=== PATIENT | female | born 1995 | race Caucasian/White ===

== ENCOUNTER 2016-05-10 15:57 | Outpatient (CLI) | payer MEDICAID ==
[2016-05-10 16:27] LABS: APPEARANCE,URINE SLIGHTLY-CLOUDY; BILIRUBIN,URINE NEGATIVE (NEGATIVE); GLUCOSE, URINE 50 mg/dL (NEGATIVE); KETONES,URINE 80 mg/dL (NEGATIVE); LEUKOCYTE ESTERASE,URINE NEGATIVE (NEGATIVE); NITRITE,URINE NEGATIVE (NEGATIVE); PROTEIN,URINE NEGATIVE (NEGATIVE); URINE SPECIFIC GRAVITY 1.017; UROBILINOGEN,URINE NEGATIVE mg/dL (<2.0)
[2016-05-10 16:47] LABS: URINE BARBITURATES SCREEN NEGATIVE; URINE METHADONE SCREEN NEGATIVE; URINE OPIATES LOW NEGATIVE; URINE PHENCYCLIDINE SCREEN NEGATIVE
== END 2016-05-10 17:01 | disposition home or self-care (01) ==
LOC: LC 15:57
PROVIDERS: ATTEND Obstetrics & Gynecology
DX: Z34.93 Encounter for supervision of normal pregnancy, unspecified, third trimester (principal); Z3A.34 34 weeks gestation of pregnancy
CPT/HCPCS: 59025; 80307; 81001

== ENCOUNTER 2016-05-16 15:55 | Outpatient (CLI) | payer MEDICAID ==
[2016-05-16 17:16] LABS: APPEARANCE,URINE SLIGHTLY-CLOUDY; BILIRUBIN,URINE NEGATIVE (NEGATIVE); GLUCOSE, URINE NEGATIVE (NEGATIVE); KETONES,URINE NEGATIVE (NEGATIVE); LEUKOCYTE ESTERASE,URINE TRACE (NEGATIVE); NITRITE,URINE NEGATIVE (NEGATIVE); PROTEIN,URINE NEGATIVE (NEGATIVE); URINE SPECIFIC GRAVITY 1.005; UROBILINOGEN,URINE NEGATIVE mg/dL (<2.0)
[2016-05-16 17:32] LABS: URINE BARBITURATES SCREEN NEGATIVE; URINE METHADONE SCREEN NEGATIVE; URINE OPIATES LOW NEGATIVE; URINE PHENCYCLIDINE SCREEN NEGATIVE
--- NOTE | 2016-05-16 17:42 | Non Stress Test Report ---
Non Stress Test Datetime Report Generated by CPN: 05/16/2016 17:42 DEMOGRAPHIC EGA NST: 35.5 EGA NST: 34.6 INDICATION Indication for Study: Ordered by Provider Indication for Study: Other Indication for Study (NST) Other: LC Indication for Study (NST) Other: LC MONITORING Monitor Explained: Monitor Explained; Patient Verbalized Understanding Monitor Explained: Monitor Explained; Test Explained; Patient Verbalized Understanding Time on Monitor: 05/16/2016 16:21 Time on Monitor: 05/10/2016 16:13 Time off Monitor: 05/16/2016 17:26 Time off Monitor: 05/10/2016 16:54 NST Duration: 65 NST Duration: 41 NST INTERVENTIONS NST Interventions: PO Hydration; Reposition Patient NST Interventions: PO Hydration Physician Notified NST: AUrsula Corbettel CNM Physician Notified NST: Baron Centeno CNM BABY A: [id number] BABY A Movement : Present Movement : Present Contraction Frequency : irregular Contraction Frequency : none FHR Baseline : 135 FHR Baseline : 135 Accelerations : 15X15 Accelerations : 15X15 Decelerations : None Decelerations : None Variability : Moderate 6-25bpm Variability : Moderate 6-25bpm NST Review: Meets Criteria for Reactive NST NST Review: Meets Criteria for Reactive NST NST Review and Verified By : Mirta Allen RN NST Review and Verified By : Dolores Nascimento RNC NST Results: Reactive NST Results: Reactive NST REPORT Report Trigger: Send Report
== END 2016-05-16 17:33 | disposition home or self-care (01) ==
LOC: LC 15:55
PROVIDERS: ATTEND Student in an Organized Health Care Education/Training Program
PROC: 4A1HXCZ Monitoring of Products of Conception, Cardiac Rate, External Approach (ICD-10-PCS; principal; 2016-05-16)
DX: O47.03 False labor before 37 completed weeks of gestation, third trimester (principal); Z3A.35 35 weeks gestation of pregnancy
CPT/HCPCS: 59025; 80307; 81001

== ENCOUNTER 2016-06-12 18:12 | Outpatient (CLI) | payer MEDICAID ==
[2016-06-12 19:32] LABS: APPEARANCE,URINE SLIGHTLY-CLOUDY; BILIRUBIN,URINE NEGATIVE (NEGATIVE); GLUCOSE, URINE NEGATIVE (NEGATIVE); KETONES,URINE NEGATIVE (NEGATIVE); LEUKOCYTE ESTERASE,URINE MODERATE (NEGATIVE); NITRITE,URINE NEGATIVE (NEGATIVE); PROTEIN,URINE NEGATIVE (NEGATIVE); URINE SPECIFIC GRAVITY 1.004; UROBILINOGEN,URINE NEGATIVE mg/dL (<2.0)
[2016-06-12] MEDS ORDERED: DOCUSATE SODIUM 100 MG CAPSULE PO ONE (19:40)
[2016-06-12 19:48] LABS: URINE BARBITURATES SCREEN NEGATIVE; URINE METHADONE SCREEN NEGATIVE; URINE OPIATES LOW NEGATIVE; URINE PHENCYCLIDINE SCREEN NEGATIVE
[2016-06-12] MEDS ORDERED: DOCUSATE SODIUM 100 MG CAPSULE ONE (19:58)
--- NOTE | 2016-06-12 20:01 | L&D Flow Sheet ---
LD Flowsheet Datetime Report Generated by CPN: 06/12/2016 20:00 Datetime: 06/12/2016 19:49 Communication Communication Comments: Dr. Neely notified of urine result, patient complaints, sve, and no bm for two days. Orders to discharge home in stable condition. May provide colace if patient prefers. (Suzette Kossmann, RN) Datetime: 06/12/2016 19:40 Vital Signs NBP Sys/Monserrat/Mean (mmHg): 117 (QS system process) : 67 (QS system process) : 87 (QS system process) Pulse: 93 (QS system process) LaborFlag: Antepartum (QS system process) Datetime: 06/12/2016 19:24 Vaginal Exam Station: -3 (Suzette Tran, RN) Exam by: RN Marc (Suzette Tran, RN) Cervix, Position: Posterior (Suzette Vivaskatherine, RN) Vaginal Exam Comments: closed/thick, no bleeding noted on glove, white discharge present (Suzette Tran, RN) Datetime: 06/12/2016 19:18 Patient Care I/O Interventions: Up to BR (Suzette Tran, RN) Datetime: 06/12/2016 19:14 Monitor Interventions for UA: [place] Adjusted (Suzette Kossmann, RN) Datetime: 06/12/2016 19:13 Communication Communication Comments: Report to J. Kossman, RN. Care relinquished (Macrina Reymundo, RN) Datetime: 06/12/2016 19:10 Maternal Assessment Level of Consciousness: Fully Conscious (Suzette Tran RN) DTR's/Clonus: DTRs 2+; No Clonus (Suzette Tran RN) Headache: Generalized (Suzette Tran RN) Breath Sounds, Left: Clear and Equal (Suzette Tran RN) Breath Sounds, Right: Clear and Equal (Suzette Tran RN) Nausea/Vomiting: Hx of Nausea/Vomiting (Annotations: intermittent nausea for weeks ) (Suzette Tran RN) RUQ Epigastric Pain: Denies (Suzette Tran RN) Datetime: 06/12/2016:06 Vital Signs NBP Sys/Monserrat/Mean (mmHg): 109 (QS system process) : 61 (QS system process) : 78 (QS system process) Pulse: 91 (QS system process) LaborFlag: Antepartum (QS system process) Datetime: 06/12/2016 19:04 Comments: RN at bedside adjusting TOCO (Macrina Reymundo, RN) Datetime: 06/12/2016 19:00 Uterine Activity Monitor Mode: External; Palpation (Macrina Reymundo, RN) Quality: Mild (Macrina Reymundo, RN) Duration (sec): 120 (Macrina Reymundo, RN) Resting Tone (Palpate): Relaxed (Macrina Reymundo, RN) Contraction Comments: patient reporting no contractions at this time (Macrina Reymundo, RN) Contraction Comments: ctx x 1 (Macrina Reymundo, RN) Assessment A Monitor Mode: External US (Macrina Reymundo, RN) FHR Baseline Rate : 130 (Macrina Reymundo, RN) Variability: Moderate 6-25 bpm (Macrina Reymundo, RN) Accelerations: 15X15 (Macrina Reymundo, RN) Decelerations: None (Macrina Reymundo, RN) Patient Care I/O Interventions: Popsicle (Macrina Reymundo, RN) Datetime: 06/12/2016 18:36 Vital Signs NBP Sys/Monserrat/Mean (mmHg): 101 (QS system process) : 57 (QS system process) : 73 (QS system process) Pulse: 97 (QS system process) Pain Pain Scale: 2 (Macrina Reymundo, RN) Pain Presence: Constant (Macrina Reymundo, RN) Pain Type: Dull (Macrina Reymundo, RN) Pain Location: Abdomen (Macrina Reymundo, RN) Pain Goal: 1 (Macrina Reymundo, RN) Vaginal Bleeding: Normal Show (Macrina Reymundo, RN) Maternal Assessment Level of Consciousness: Fully Conscious (Macrina Reymundo, RN) DTR's/Clonus: DTRs 1+; No Clonus (Macrina Reymundo, RN) Headache: Generalized (Macrina Reymundo, RN) Breath Sounds, Left: Clear and Equal (Macrina Reymundo, RN) Breath Sounds, Right: Clear and Equal (Macrina Reymundo, RN) Nausea/Vomiting: Present (Annotations: nausea) (Macrina Reymundo, RN) RUQ Epigastric Pain: Denies (Macrina Reymundo, RN) LaborFlag: Antepartum (QS system process) Datetime: 05/16/2016 16:35 LaborFlag: Antepartum (QS system process) Datetime: 05/16/2016 16:34 Temperature (C): 36.8 (QS system process) LaborFlag: Antepartum (QS system process) Datetime: 05/16/2016 16:30 LaborFlag: Antepartum (QS system process) Datetime: 05/10/2016 16:54 LaborFlag: Antepartum (QS system process) Datetime: 05/10/2016 16:20 LaborFlag: Antepartum (QS system process) Datetime: 05/10/2016 16:14 LaborFlag: Antepartum (QS system process)
--- NOTE | 2016-06-16 21:18 | Non Stress Test Report ---
Non Stress Test Datetime Report Generated by CPN: 06/16/2016 21:18 DEMOGRAPHIC Test Number: 3 EGA NST: 39.4 INDICATION Indication for Study: Ordered by Provider Indication for Study (NST) Other: Labor Check VITAL SIGNS Temperature - NST: 97.6 Pulse - NST: 93 RESP - NST: 16 NBPSYS NST: 117 NBPDIA NST: 67 URINE RESULTS Urine Protein, NST: Negative Urine Ketones - NST: Negative Urine Glucose - NST: Negative Urine Blood - NST: Negative MONITORING Monitor Explained: Monitor Explained; Test Explained; Patient Verbalized Understanding Time on Monitor: 06/12/2016 18:34 Time off Monitor: 06/12/2016 19:50 NST Duration: 76 NST INTERVENTIONS NST Interventions: PO Hydration; Reposition Patient Physician Notified NST: Dr. Neely BABY A: [id number] BABY A Movement : Present Contraction Frequency : irregular FHR Baseline : 130 Accelerations : 15X15 Decelerations : None Variability : Moderate 6-25bpm NST Review: Meets Criteria for Reactive NST NST Review and Verified By : KEELY COSME Results: Reactive NST REPORT Report Trigger: Send Report
== END 2016-06-12 20:03 | disposition home or self-care (01) ==
LOC: LC 18:12
PROVIDERS: ATTEND Obstetrics & Gynecology
PROC: 4A1HXCZ Monitoring of Products of Conception, Cardiac Rate, External Approach (ICD-10-PCS; principal; 2016-06-12)
DX: O47.1 False labor at or after 37 completed weeks of gestation (principal); O26.893 Other specified pregnancy related conditions, third trimester; R11.2 Nausea with vomiting, unspecified; Z3A.39 39 weeks gestation of pregnancy
CPT/HCPCS: 59025; 81005; 80307; J3490

== ENCOUNTER 2016-06-16 21:17 | Outpatient (CLI) | payer MEDICAID ==
[2016-06-16 21:52] LABS: APPEARANCE,URINE CLEAR; BILIRUBIN,URINE NEGATIVE (NEGATIVE); GLUCOSE, URINE NEGATIVE (NEGATIVE); KETONES,URINE NEGATIVE (NEGATIVE); LEUKOCYTE ESTERASE,URINE TRACE (NEGATIVE); NITRITE,URINE NEGATIVE (NEGATIVE); PROTEIN,URINE NEGATIVE (NEGATIVE); URINE SPECIFIC GRAVITY 1.004; UROBILINOGEN,URINE NEGATIVE mg/dL (<2.0)
[2016-06-16 22:05] LABS: URINE BARBITURATES SCREEN NEGATIVE; URINE METHADONE SCREEN NEGATIVE; URINE OPIATES LOW NEGATIVE; URINE PHENCYCLIDINE SCREEN NEGATIVE
[2016-06-16] MEDS ORDERED: CITRIC ACID/SODIUM CITRATE ORAL SOLN 15 ML UDCUP ONE (22:39)
[2016-06-16] MEDS ORDERED: CITRIC ACID/SODIUM CITRATE ORAL SOLN 15 ML UDCUP PO ONE (22:45)
== END 2016-06-16 23:28 | disposition home or self-care (01) ==
LOC: LC 21:17
PROVIDERS: ATTEND Student in an Organized Health Care Education/Training Program
PROC: 4A1HXCZ Monitoring of Products of Conception, Cardiac Rate, External Approach (ICD-10-PCS; principal; 2016-06-16)
DX: O47.1 False labor at or after 37 completed weeks of gestation (principal); Z3A.40 40 weeks gestation of pregnancy
CPT/HCPCS: 59025; 81005; 80307; J3490

== ENCOUNTER 2016-06-17 13:55 | Inpatient (IN) | payer MEDICAID ==
--- NOTE | 2016-06-17 14:03 | Non Stress Test Report ---
Non Stress Test Datetime Report Generated by CPN: 06/17/2016 14:03 DEMOGRAPHIC EGA NST: 40.1 INDICATION Indication for Study: Ordered by Provider Indication for Study (NST) Other: LC MONITORING Monitor Explained: Monitor Explained; Test Explained; Patient Verbalized Understanding Time on Monitor: 06/16/2016 21:39 Time off Monitor: 06/16/2016 22:24 NST Duration: 45 NST INTERVENTIONS NST Interventions: PO Hydration; Reposition Patient Physician Notified NST: Dr. Sean BABY A Movement : Present Contraction Frequency : 7.5-9 FHR Baseline : 135 Accelerations : 15X15 Decelerations : None Variability : Moderate 6-25bpm NST Review: Meets Criteria for Reactive NST NST Review and Verified By : FADIA Bedolla NST Results: Reactive NST REPORT Report Trigger: Send Report
[2016-06-17] MEDS ORDERED: RINGERS SOLUTION,LACTATED 300 ML IV ONE (14:08)
[2016-06-17] MEDS ORDERED: RINGERS SOLUTION,LACTATED 1,000 ML IV PRN ×2 (14:08→14:15)
[2016-06-17 14:30] LABS: APPEARANCE,URINE SLIGHTLY-CLOUDY; BILIRUBIN,URINE NEGATIVE (NEGATIVE); GLUCOSE, URINE NEGATIVE (NEGATIVE); KETONES,URINE NEGATIVE (NEGATIVE); LEUKOCYTE ESTERASE,URINE NEGATIVE (NEGATIVE); NITRITE,URINE NEGATIVE (NEGATIVE); PROTEIN,URINE NEGATIVE (NEGATIVE); URINE SPECIFIC GRAVITY 1.015
[2016-06-17 14:43] LABS: ABSOLUTE EOSINOPHILS # (AUTO) 0.1 10^3/uL (0.0-0.6); ABSOLUTE LYMPHOCYTES (AUTO) 1.5 10^3/uL (0.5-4.7); ABSOLUTE MONOCYTES (AUTO) 0.7 10^3/uL (0.1-1.4); ABSOLUTE NEUT (AUTO) 8.1 10^3/uL (1.7-8.2); BASOPHILS % (AUTO) 0.4 % (0-2); EOSINOPHILS % (AUTO) 0.8 % (0-6); HEMATOCRIT 31.2 % (36.0-47.0); HEMOGLOBIN 10.2 g/dL (12.0-15.5); HGB HCT DIFFERENCE -0.6; LYMPHOCYTES % (AUTO) 14.4 % (13-45); MEAN CORPUSCULAR HEMOGLOBIN 26.1 pg (27.0-33.4); MEAN CORPUSCULAR HGB CONC 32.5 g/dL (32.0-36.0); MEAN CORPUSCULAR VOLUME 80 fl (80-97); MONOCYTES % (AUTO) 6.9 % (3-13); RED BLOOD COUNT 3.89 10^6/uL (3.72-5.28); RED CELL DISTRIBUTION WIDTH 14.9 % (11.5-14.0); SEGMENTED NEUTROPHILS % (AUTO) 77.5 % (42-78); WHITE BLOOD COUNT 10.5 10^3/uL (4.0-10.5)
[2016-06-17] MEDS ORDERED: OXYTOCIN/NORMAL SALINE 20 UNIT/1,000 ML RTUINJ ONE ×2 (14:47→23:16)
[2016-06-17 14:49] LABS: URINE BARBITURATES SCREEN NEGATIVE; URINE METHADONE SCREEN NEGATIVE; URINE OPIATES LOW NEGATIVE; URINE PHENCYCLIDINE SCREEN NEGATIVE
[2016-06-17] MEDS ORDERED: NALBUPHINE HCL INJ 10 MG/1 ML AMPULE IV ONE (17:36)
[2016-06-17] MEDS: OXYTOCIN/NORMAL SALINE 1,000 ML IV PRN (17:37)
[2016-06-17] MEDS ORDERED: NALBUPHINE HCL INJ 10 MG/1 ML AMPULE ONE (17:37)
--- NOTE | 2016-06-17 20:01 | L&D Flow Sheet ---
LD Flowsheet Datetime Report Generated by CPN: 06/17/2016 20:00 Datetime: 06/17/2016 19:54 Pain Assessment Comments: Pt remains on birthing ball, breathing through contractions; bolus started for epidural. (Maryellen Narayan RN) IV/Blood Work: IV Bolus Started (Maryellen Narayan RN) Procedure Verify: Correct Patient Identity; Correct Side and Site are Marked; Accurate Procedure Consent Form; Agreement on Procedure to be Done; Relevant Images and Results are Properly Labeled and Displayed; Addressed Need to Administer Antibiotics or Fluids for Irrigation; Safety Precautions Based on Patient History or Medication Use (Maryellen Narayan RN) Anesthesia Plans: Epidural (Maryellen Narayan RN) Instructional Method: Verbal; Patient Instructed; Verbalized Understanding (Maryellen Narayan RN) Plan of Care: Plan of Care Discussed (Maryellen Naryaan RN) Communication Comments: Dr. Mathews on unit, reviewed strip. Orders received, pt may receive epidural. (Maryellen Narayan RN) LaborFlag: Antepartum (QS system process) Datetime: 06/17/2016 19:49 Instructional Method: Verbal; Patient Instructed; Verbalized Understanding (Maryellen Vitrano, RN) Plan of Care: Plan of Care Discussed (Maryellen Vitrano, RN) Datetime: 06/17/2016 19:48 Communication Comments: Dr. Mathews called, reviewed pt condition, toco tracing, FHTs, pt request for medication. Dr. Mathews states she will come to unit to assess pt. (Maryellen Vitrano, RN) Datetime: 06/17/2016 19:47 Monitor Interventions for FHR: Ultrasound Adjusted (Maryellen Vitrano, RN) Datetime: 06/17/2016 19:45 Monitor Mode: External; Palpation (Maryellen Vitrano, RN) Frequency (min): 2-4 (Maryellen Vitrano, RN) Quality: Moderate (Maryellen Vitrano, RN) Duration (sec): 50-70 (Maryellen Vitrano, RN) Duration Criteria: Less than Two 120 Second Contractions (Maryellen Vitrano, RN) Pattern: Normal: <= 5 Contractions in 10 Minutes (Maryellen Vitrano, RN) Resting Tone (Palpate): Relaxed (Maryellen Vitrano, RN) Monitor Mode: External US (Maryellen Vitrano, RN) FHR Baseline Rate : 135 (Maryellen Vitrano, RN) Variability: Moderate 6-25 bpm (Maryellen Vitrano, RN) Accelerations: 10X10 (Maryellen Vitrano, RN) Decelerations: None (Maryellen Vitrano, RN) Pain Coping: Requesting Pain Medication or Epidural (Maryellen Vitrano, RN) Pitocin (milliunit): Pitocin Remains (milliunits) @ 20 (Maryellen Vitrano, RN) Datetime: 06/17/2016 19:42 NBP Sys/Monserrat/Mean (mmHg): 115 (QS system process) : 69 (QS system process) : 85 (QS system process) Pulse: 87 (QS system process) Respirations: 17 (Maryellen Vitrano, RN) LaborFlag: Antepartum (QS system process) Datetime: 06/17/2016 19:30 Monitor Mode: External; Palpation (Maryellen Vitrano, RN) Frequency (min): 2-4 (Maryellen Vitrano, RN) Quality: Moderate (Maryellen Vitrano, RN) Duration (sec): 50-70 (Maryellen Vitrano, RN) Duration Criteria: Less than Two 120 Second Contractions (Maryellen Vitrano, RN) Pattern: Normal: <= 5 Contractions in 10 Minutes (Maryellen Vitrano, RN) Resting Tone (Palpate): Relaxed (Maryellen Vitrano, RN) Monitor Mode: External US (Maryellen Vitrano, RN) FHR Baseline Rate : 135 (Maryellen Vitrano, RN) Variability: Moderate 6-25 bpm (Maryellen Vitrano, RN) Accelerations: 10X10 (Maryellen Vitrano, RN) Decelerations: None (Maryellen Vitrano, RN) Pitocin (milliunit): Pitocin Remains (milliunits) @ 20 (Maryellen Vitrano, RN) Datetime: 06/17/2016 19:27 Monitor Interventions for UA: [place] Adjusted (Maryellen Vitrano, RN) Datetime: 06/17/2016 19:15 Monitor Mode: External (Maryellen Vitrano, RN) Frequency (min): 2-3 (Maryellen Vitrano, RN) Quality: Mild/Moderate (Maryellen Vitrano, RN) Duration (sec): 50-70 (Maryellen Vitrano, RN) Duration Criteria: Less than Two 120 Second Contractions (Maryellen Vitrano, RN) Pattern: Normal: <= 5 Contractions in 10 Minutes (Maryellen Vitrano, RN) Resting Tone (Palpate): Relaxed (Maryellen Vitrano, RN) Monitor Mode: External US (Maryellen Vitrano, RN) FHR Baseline Rate : 135 (Maryellen Vitrano, RN) Variability: Moderate 6-25 bpm (Maryellen Vitrano, RN) Accelerations: None (Maryellen Vitrano, RN) Decelerations: None (Maryellen Vitrano, RN) Pitocin (milliunit): Pitocin Remains (milliunits) @ 20 (Mayrellen Vitrano, RN) Datetime: 06/17/2016 19:11 NBP Sys/Monserrat/Mean (mmHg): 118 (QS system process) : 68 (QS system process) : 87 (QS system process) Pulse: 82 (QS system process) Respirations: 16 (Maryellen Narayan RN) LaborFlag: Antepartum (QS system process) Datetime: 06/17/2016 19:10 Pain Assessment Comments: Denies needs (Maryellen Narayan RN) Comfort Measures: Breathing/Relaxation (Maryellen Narayan RN) Patient Care Comments: Pt up to birthing ball (Maryellen Narayan RN) LaborFlag: Antepartum (QS system process) Datetime: 06/17/2016 19:05 Pitocin (milliunit): Pitocin Increased to (milliunits) @ 20 (Maryellen Vitrano, RN) I/O Interventions: Up to BR (Maryellen Vitrano, RN) Datetime: 06/17/2016 19:00 Monitor Mode: External; Palpation (Maryellen Vitrano, RN) Frequency (min): 1.5-3 (Maryellen Vitrano, RN) Quality: Mild/Moderate (Maryellen Vitrano, RN) Duration (sec): 50-90 (Maryellen Vitrano, RN) Duration Criteria: Less than Two 120 Second Contractions (Maryellen Vitrano, RN) Pattern: Normal: <= 5 Contractions in 10 Minutes (Maryellen Vitrano, RN) Resting Tone (Palpate): Relaxed (Maryellen Vitrano, RN) Monitor Mode: External US (Maryellen Vitrano, RN) FHR Baseline Rate : 135 (Maryellen Vitrano, RN) Variability: Moderate 6-25 bpm (Maryellen Vitrano, RN) Accelerations: 15X15 (Maryellen Vitrano, RN) Decelerations: None (Maryellen Vitrano, RN) Pitocin (milliunit): Pitocin Remains (milliunits) @ 18 (Maryellen Vitrano, RN) Datetime: 06/17/2016 18:45 Monitor Mode: External (Maryellen Vitrano, RN) Frequency (min): 1-2 (Maryellen Vitrano, RN) Quality: Mild/Moderate (Maryellen Vitrano, RN) Duration (sec): 50-60 (Maryellen Vitrano, RN) Duration Criteria: Less than Two 120 Second Contractions (Maryellen Vitrano, RN) Pattern: Normal: <= 5 Contractions in 10 Minutes (Maryellen Vitrano, RN) Resting Tone (Palpate): Relaxed (Maryellen Vitrano, RN) Monitor Mode: External US (Maryellen Vitrano, RN) FHR Baseline Rate : 135 (Maryellen Vitrano, RN) Variability: Moderate 6-25 bpm (Maryellen Vitrano, RN) Accelerations: 10X10 (Maryellen Vitrano, RN) Decelerations: None (Maryellen Vitrano, RN) Pitocin (milliunit): Pitocin Remains (milliunits) @ 18 (Maryellen Vitrano, RN) Datetime: 06/17/2016 18:42 NBP Sys/Monserrat/Mean (mmHg): 117 (QS system process) : 73 (QS system process) : 90 (QS system process) Pulse: 93 (QS system process) Respirations: 16 (Maryellen Vitrano, RN) LaborFlag: Antepartum (QS system process) Datetime: 06/17/2016 18:30 Monitor Mode: External (Maryellen Vitrano, RN) Frequency (min): 2-2.5 (Maryellen Vitrano, RN) Quality: Mild/Moderate (Maryellen Vitrano, RN) Duration (sec): 50-70 (Maryellen Vitrano, RN) Duration Criteria: Less than Two 120 Second Contractions (Maryellen Vitrano, RN) Pattern: Normal: <= 5 Contractions in 10 Minutes (Maryellen Vitrano, RN) Resting Tone (Palpate): Relaxed (Maryellen Vitrano, RN) Monitor Mode: External US (Maryellen Vitrano, RN) FHR Baseline Rate : 140 (Maryellen Vitrano, RN) Variability: Moderate 6-25 bpm (Maryellen Vitrano, RN) Accelerations: 10X10 (Maryellen Vitrano, RN) Decelerations: None (Maryellen Vitrano, RN) Pitocin (milliunit): Pitocin Increased to (milliunits) @ 18 (Maryellen Vitrano, RN) Datetime: 06/17/2016 18:15 Monitor Mode: External (Maryellen Vitrano, RN) Frequency (min): 2-3 (Maryellen Vitrano, RN) Quality: Mild/Moderate (Maryellen Vitrano, RN) Duration (sec): 50-80 (Maryellen Vitrano, RN) Duration Criteria: Less than Two 120 Second Contractions (Maryellen Vitrano, RN) Pattern: Normal: <= 5 Contractions in 10 Minutes (Maryellen Vitrano, RN) Resting Tone (Palpate): Relaxed (Maryellen Vitrano, RN) Monitor Mode: External US (Maryellen Vitrano, RN) FHR Baseline Rate : 140 (Maryellen Vitrano, RN) Variability: Moderate 6-25 bpm (Maryellen Vitrano, RN) Accelerations: None (Maryellen Vitrano, RN) Decelerations: None (Maryellen Vitrano, RN) Pitocin (milliunit): Pitocin Remains (milliunits) @ 16 (Maryellen Vitrano, RN) Datetime: 06/17/2016 18:12 NBP Sys/Monserrat/Mean (mmHg): 121 (QS system process) : 82 (QS system process) : 97 (QS system process) Pulse: 100 (QS system process) Respirations: 16 (Maryellen Vitrano, RN) Temperature (F): 97.4 (Maryellen Vitrano, RN) Temperature (C): 36.3 (QS system process) Temperature Route: Oral (Maryellen Vitrano, RN) LaborFlag: Antepartum (QS system process) Datetime: 06/17/2016 18:10 Pitocin (milliunit): Pitocin Increased to (milliunits) @ 16 (Maryellen Vitrano, RN) Datetime: 06/17/2016 18:00 Monitor Mode: External; Palpation (Maryellen Vitrano, RN) Frequency (min): 2-4 (Maryellen Vitrano, RN) Quality: Mild/Moderate (Maryellen Vitrano, RN) Duration (sec): 50-80 (Maryellen Vitrano, RN) Duration Criteria: Less than Two 120 Second Contractions (Maryellen Vitrano, RN) Pattern: Normal: <= 5 Contractions in 10 Minutes (Maryellen Vitrano, RN) Resting Tone (Palpate): Relaxed (Maryellen Vitrano, RN) Monitor Mode: External US (Maryellen Vitrano, RN) FHR Baseline Rate : 140 (Maryellen Vitrano, RN) Variability: Minimal - Undetectable to <=5 bpm (Maryellen Vitrano, RN) Accelerations: None (Maryellen Vitrano, RN) Decelerations: None (Maryellen Vitrano, RN) Pain Assessment Comments: Pt states pain is relieved; resting in bed (Maryellen Vitrano, RN) Pitocin (milliunit): Pitocin Remains (milliunits) @ 14 (Maryellen Vitrano, RN) I/O Interventions: Clear Liquids Given (Maryellen Vitrano, RN) LaborFlag: Antepartum (QS system process) Datetime: 06/17/2016 17:45 Monitor Mode: External (Maryellen Vitrano, RN) Frequency (min): 2-3.5 (Maryellen Vitrano, RN) Quality: Mild/Moderate (Maryellen Vitrano, RN) Duration (sec): 50-100 (Maryellen Vitrano, RN) Duration Criteria: Less than Two 120 Second Contractions (Maryellen Vitrano, RN) Pattern: Normal: <= 5 Contractions in 10 Minutes (Maryellen Vitrano, RN) Resting Tone (Palpate): Relaxed (Maryellen Vitrano, RN) Monitor Mode: External US (Maryellen Vitrano, RN) FHR Baseline Rate : 140 (Maryellen Vitrano, RN) Variability: Moderate 6-25 bpm (Maryellen Vitrano, RN) Accelerations: None (Maryellen Vitrano, RN) Decelerations: None (Maryellen Vitrano, RN) Pitocin (milliunit): Pitocin Remains (milliunits) @ 14 (Maryellen Vitrano, RN) Datetime: 06/17/2016 17:42 NBP Sys/Monserrat/Mean (mmHg): 118 (QS system process) : 57 (QS system process) : 82 (QS system process) Pulse: 91 (QS system process) Respirations: 16 (Maryellen Vitrano, RN) LaborFlag: Antepartum (QS system process) Datetime: 06/17/2016 17:39 Monitor Interventions for FHR: Ultrasound Adjusted (Maryellen Vitrano, RN) Patient Position/Activity: Right Lateral (Maryellen Vitrano, RN) Datetime: 06/17/2016 17:37 Medication Comments: Nubain 10 mg IV (Maryellen Vitrano, RN) Datetime: 06/17/2016 17:34 Communication Comments: Call to Dr. Mathews, reviewed SVE and pt request for pain medication.Orders from Dr. Mathews for Nubain 10 mg IV x1 now for pain. (Maryellen Helene, RN) Datetime: 06/17/2016 17:33 Dilatation (cm): 2.0 (Maryellen Narayan, RN) Effacement (%): 60 (Maryellen Helene, RN) Station: -2 (Maryellen Helene RN) Exam by: Robin Narayan RN (Maryellen Narayan, RN) Vaginal Bleeding: None (Maryellengigi Narayan, RN) Cervix, Consistency: Moderate (Maryellen Helene, RN) Cervix, Position: Posterior (Maryellen Pasqualeano, RN) Datetime: 06/17/2016 17:32 Pain Coping: Requesting Pain Medication or Epidural (Maryellen Vitrano, RN) Datetime: 06/17/2016 17:30 Monitor Mode: External (Maryellen Vitrano, RN) Frequency (min): 2-3 (Maryellen Vitrano, RN) Quality: Mild/Moderate (Maryellen Vitrano, RN) Duration (sec): 50-70 (Maryellen Vitrano, RN) Duration Criteria: Less than Two 120 Second Contractions (Maryellen Vitrano, RN) Pattern: Normal: <= 5 Contractions in 10 Minutes (Maryellen Vitrano, RN) Resting Tone (Palpate): Relaxed (Maryellen Vitrano, RN) Monitor Mode: External US (Maryellen Vitrano, RN) FHR Baseline Rate : 145 (Maryellen Vitrano, RN) Variability: Moderate 6-25 bpm (Maryellen Vitrano, RN) Accelerations: 15X15 (Maryellen Vitrano, RN) Decelerations: None (Maryellen Vitrano, RN) Pitocin (milliunit): Pitocin Remains (milliunits) @ 14 (Maryellen Vitrano, RN) Datetime: 06/17/2016 17:29 Monitor Interventions for UA: [place] Adjusted (Maryellen Vitrano, RN) Datetime: 06/17/2016 17:18 Patient Position/Activity: Left Tilt (Maryellen Vitrano, RN) Datetime: 06/17/2016 17:15 Monitor Mode: External (Maryellen Vitrano, RN) Frequency (min): 2-3 (Maryellen Vitrano, RN) Quality: Mild/Moderate (Maryellen Vitrano, RN) Duration (sec): 50-90 (Maryellen Vitrano, RN) Duration Criteria: Less than Two 120 Second Contractions (Maryellen Vitrano, RN) Pattern: Normal: <= 5 Contractions in 10 Minutes (Maryellen Vitrano, RN) Resting Tone (Palpate): Relaxed (Maryellen Vitrano, RN) Monitor Mode: External US (Maryellen Vitrano, RN) FHR Baseline Rate : 145 (Maryellen Vitrano, RN) Variability: Moderate 6-25 bpm (Maryellen Vitrano, RN) Accelerations: 15X15 (Maryellen Vitrano, RN) Decelerations: None (Maryellen Vitrano, RN) Pitocin (milliunit): Pitocin Remains (milliunits) @ 14 (Maryellen Vitrano, RN) Datetime: 06/17/2016 17:11 NBP Sys/Monserrat/Mean (mmHg): 110 (QS system process) : 62 (QS system process) : 79 (QS system process) Pulse: 99 (QS system process) Respirations: 17 (Maryellen Vitrano, RN) LaborFlag: Antepartum (QS system process) Datetime: 06/17/2016 17:05 Comfort Measures: Breathing/Relaxation; Rocking Chair; Family Support (Maryellen Narayan RN) Patient Care Comments: Pt up to rocking chair; denies needs (Maryellen Narayan RN) Datetime: 06/17/2016 17:01 Hygiene: Underpad Changed (Maryellen Vitrano, RN) Datetime: 06/17/2016 17:00 Monitor Mode: External; Palpation (Maryellen Vitrano, RN) Frequency (min): 2-3.5 (Maryellen Vitrano, RN) Quality: Moderate (Maryellen Vitrano, RN) Duration (sec): 50-70 (Maryellen Vitrano, RN) Duration Criteria: Less than Two 120 Second Contractions (Maryellen Vitrano, RN) Pattern: Normal: <= 5 Contractions in 10 Minutes (Maryellen Vitrano, RN) Resting Tone (Palpate): Relaxed (Maryellen Vitrano, RN) Monitor Mode: External US (Maryellen Vitrano, RN) FHR Baseline Rate : 140 (Maryellen Vitrano, RN) Variability: Minimal - Undetectable to <=5 bpm (Maryellen Vitrano, RN) Accelerations: None (Maryellen Vitrano, RN) Decelerations: None (Maryellen Vitrano, RN) Pitocin (milliunit): Pitocin Increased to (milliunits) @ 14 (Maryellen Vitrano, RN) I/O Interventions: Up to BR (Maryellen Vitrano, RN) Datetime: 06/17/2016 16:45 Monitor Mode: External (Maryellen Vitrano, RN) Frequency (min): 2-3.5 (Maryellen Vitrano, RN) Quality: Mild/Moderate (Maryellen Vitrano, RN) Duration (sec): 50-80 (Maryellen Vitrano, RN) Duration Criteria: Less than Two 120 Second Contractions (Maryellen Vitrano, RN) Pattern: Normal: <= 5 Contractions in 10 Minutes (Maryellen Vitrano, RN) Resting Tone (Palpate): Relaxed (Maryellen Vitrano, RN) Monitor Mode: External US (Maryellen Vitrano, RN) FHR Baseline Rate : 135 (Maryellen Vitrano, RN) Variability: Moderate 6-25 bpm (Maryellen Vitrano, RN) Accelerations: 15X15 (Maryellen Vitrano, RN) Decelerations: None (Maryellen Vitrano, RN) Pitocin (milliunit): Pitocin Remains (milliunits) @ 12 (Maryellen Vitrano, RN) Datetime: 06/17/2016 16:42 NBP Sys/Monserrat/Mean (mmHg): 104 (QS system process) : 59 (QS system process) : 76 (QS system process) Pulse: 81 (QS system process) Respirations: 16 (Maryellen Vitrano, RN) LaborFlag: Antepartum (QS system process) Datetime: 06/17/2016 16:30 Monitor Mode: External (Maryellen Vitrano, RN) Frequency (min): 2-3 (Maryellen Vitrano, RN) Quality: Mild/Moderate (Maryellen Vitrano, RN) Duration (sec): 50-70 (Maryellen Vitrano, RN) Duration Criteria: Less than Two 120 Second Contractions (Maryellen Vitrano, RN) Pattern: Normal: <= 5 Contractions in 10 Minutes (Maryellen Vitrano, RN) Resting Tone (Palpate): Relaxed (Maryellen Vitrano, RN) Monitor Mode: External US (Maryellen Vitrano, RN) FHR Baseline Rate : 140 (Maryellen Vitrano, RN) Variability: Moderate 6-25 bpm (Maryellen Vitrano, RN) Accelerations: 15X15 (Maryellen Vitrano, RN) Decelerations: None (Maryellen Vitrano, RN) Pitocin (milliunit): Pitocin Increased to (milliunits) @ 12 (Maryellen Vitrano, RN) Datetime: 06/17/2016 16:19 Communication Comments: Dr. Mathews at bedside to greet pt, review POC, answer pt questions (Maryellen Vitrano, RN) Datetime: 06/17/2016 16:16 Monitor Interventions for FHR: Ultrasound Adjusted (Maryellen Vitrano, RN) Patient Position/Activity: Left Extreme (Maryellen Vitrano, RN) Datetime: 06/17/2016 16:15 Monitor Mode: External (Maryellen Vitrano, RN) Frequency (min): 2-3.5 (Maryellen Vitrano, RN) Quality: Mild/Moderate (Maryellen Vitrano, RN) Duration (sec): 50-90 (Maryellen Vitrano, RN) Duration Criteria: Less than Two 120 Second Contractions (Maryellen Vitrano, RN) Pattern: Normal: <= 5 Contractions in 10 Minutes (Maryellen Vitrano, RN) Resting Tone (Palpate): Relaxed (Maryellen Vitrano, RN) Monitor Mode: External US (Maryellen Vitrano, RN) FHR Baseline Rate : 140 (Maryellen Vitrano, RN) Variability: Moderate 6-25 bpm (Maryellen Vitrano, RN) Accelerations: 15X15 (Maryellen Vitrano, RN) Decelerations: None (Maryellen Vitrano, RN) Pitocin (milliunit): Pitocin Increased to (milliunits) @ 10 (Maryellen Vitrano, RN) Datetime: 06/17/2016 16:12 NBP Sys/Monserrat/Mean (mmHg): 109 (QS system process) : 70 (QS system process) : 84 (QS system process) Pulse: 97 (QS system process) Respirations: 16 (Maryellen Vitrano, RN) Temperature (F): 98.5 (Maryellen Vitrano, RN) Temperature (C): 36.9 (QS system process) Temperature Route: Oral (Maryellen Vitrano, RN) LaborFlag: Antepartum (QS system process) Datetime: 06/17/2016 16:00 Monitor Mode: External; Palpation (Maryellen Vitrano, RN) Frequency (min): 3-4 (Maryellen Vitrano, RN) Quality: Mild/Moderate (Maryellen Vitrano, RN) Duration (sec): 50-70 (Maryellen Vitrano, RN) Duration Criteria: Less than Two 120 Second Contractions (Maryellen Vitrano, RN) Pattern: Normal: <= 5 Contractions in 10 Minutes (Maryellen Vitrano, RN) Resting Tone (Palpate): Relaxed (Maryellen Vitrano, RN) Monitor Mode: External US (Maryellen Vitrano, RN) FHR Baseline Rate : 140 (Maryellen Vitrano, RN) Variability: Moderate 6-25 bpm (Maryellen Vitrano, RN) Accelerations: 15X15 (Maryellen Vitrano, RN) Decelerations: None (Maryellen Vitrano, RN) Pitocin (milliunit): Pitocin Increased to (milliunits) @ 8 (Maryellen Vitrano, RN) Datetime: 06/17/2016 15:45 Monitor Mode: External (Maryellen Vitrano, RN) Frequency (min): 2-5 (Maryellen Vitrano, RN) Quality: Mild/Moderate (Maryellen Vitrano, RN) Duration (sec): 50-70 (Maryellen Vitrano, RN) Duration Criteria: Less than Two 120 Second Contractions (Maryellen Vitrano, RN) Pattern: Normal: <= 5 Contractions in 10 Minutes (Maryellen Vitrano, RN) Resting Tone (Palpate): Relaxed (Maryellen Vitrano, RN) Monitor Mode: External US (Maryellen Vitrano, RN) FHR Baseline Rate : 140 (Maryellen Vitrano, RN) Variability: Moderate 6-25 bpm (Maryellen Vitrano, RN) Accelerations: 15X15 (Maryellen Vitrano, RN) Decelerations: None (Maryellen Vitrano, RN) Pitocin (milliunit): Pitocin Increased to (milliunits) @ 6 (Maryellen Vitrano, RN) Hygiene: Underpad Changed (Maryellen Vitrano, RN) I/O Interventions: Up to BR (Maryellen Vitrano, RN) Datetime: 06/17/2016 15:43 Communication Comments: Orders from Dr. Mathews pt may have clear liquid diet (Maryellen Vitrano, RN) Datetime: 06/17/2016 15:42 NBP Sys/Monserrat/Mean (mmHg): 110 (QS system process) : 71 (QS system process) : 85 (QS system process) Pulse: 82 (QS system process) Respirations: 16 (Maryellen Vitrano, RN) LaborFlag: Antepartum (QS system process) Datetime: 06/17/2016 15:30 Monitor Mode: External (Maryellen Vitrano, RN) Frequency (min): Occasional (Maryellen Vitrano, RN) Quality: Mild (Maryellen Vitrano, RN) Duration (sec): 50-90 (Maryellen Vitrano, RN) Duration Criteria: Less than Two 120 Second Contractions (Maryellen Vitrano, RN) Pattern: Normal: <= 5 Contractions in 10 Minutes (Maryellen Vitrano, RN) Resting Tone (Palpate): Relaxed (Maryellen Vitrano, RN) Monitor Mode: External US (Maryellen Vitrano, RN) FHR Baseline Rate : 140 (Maryellen Vitrano, RN) Variability: Moderate 6-25 bpm (Maryellen Vitrano, RN) Accelerations: 15X15 (Maryellen Vitrano, RN) Decelerations: None (Maryellen Vitrano, RN) Pitocin (milliunit): Pitocin Remains (milliunits) @ 4 (Maryellen Vitrano, RN) Datetime: 06/17/2016 15:25 Pitocin (milliunit): Pitocin Increased to (milliunits) @ 4 (Maryellen Vitrano, RN) I/O Interventions: Clear Liquids Given (Maryellen Vitrano, RN) Datetime: 06/17/2016 15:15 Monitor Mode: External (Maryellen Vitrano, RN) Frequency (min): Irregular (Maryellen Vitrano, RN) Quality: Mild (Maryellen Vitrano, RN) Duration (sec): 50-60 (Maryellen Vitrano, RN) Duration Criteria: Less than Two 120 Second Contractions (Maryellen Vitrano, RN) Pattern: Normal: <= 5 Contractions in 10 Minutes (Maryellen Vitrano, RN) Resting Tone (Palpate): Relaxed (Maryellen Vitrano, RN) Monitor Mode: External US (Maryellen Vitrano, RN) FHR Baseline Rate : 135 (Maryellen Vitrano, RN) Variability: Moderate 6-25 bpm (Maryellen Vitrano, RN) Accelerations: 15X15 (Maryellen Vitrano, RN) Decelerations: None (Maryellen Vitrano, RN) Pitocin (milliunit): Pitocin Remains (milliunits) @ 2 (Maryellen Vitrano, RN) Hygiene: Underpad Changed (Maryellen Vitrano, RN) Datetime: 06/17/2016 15:11 NBP Sys/Monserrat/Mean (mmHg): 111 (QS system process) : 69 (QS system process) : 85 (QS system process) Pulse: 88 (QS system process) Respirations: 16 (Maryellen Vitrano, RN) LaborFlag: Antepartum (QS system process) Datetime: 06/17/2016 15:00 Monitor Mode: External; Palpation (Maryellen Vitrano, RN) Frequency (min): Irregular (Maryellen Vitrano, RN) Quality: Mild (Maryellen Vitrano, RN) Duration (sec): 50-90 (Maryellen Vitrano, RN) Duration Criteria: Less than Two 120 Second Contractions (Maryellen Vitrano, RN) Pattern: Normal: <= 5 Contractions in 10 Minutes (Maryellen Vitrano, RN) Resting Tone (Palpate): Relaxed (Maryellen Vitrano, RN) Monitor Mode: External US (Maryellen Vitrano, RN) FHR Baseline Rate : 140 (Mareyllen Vitrano, RN) Variability: Moderate 6-25 bpm (Maryellen Vitrano, RN) Accelerations: 15X15 (Maryellen Vitrano, RN) Decelerations: None (Maryellen Vitrano, RN) Pitocin (milliunit): Pitocin Remains (milliunits) @ 2 (Maryellen Vitrano, RN) Datetime: 06/17/2016 14:53 Pitocin (milliunit): Pitocin Started (milliunits) @ 2; Pitocin 20 Units in 1000ml NS (Maryellen Vitrano, RN) Datetime: 06/17/2016 14:51 Instructional Method: Verbal; Patient Instructed; Family/Support Person Instructed; Verbalized Understanding (Maryellen Vitrano, RN) Plan of Care: Plan of Care Discussed (Maryellen Vitrano, RN) Datetime: 06/17/2016 14:41 NBP Sys/Monserrat/Mean (mmHg): 104 (QS system process) : 62 (QS system process) : 78 (QS system process) Pulse: 93 (QS system process) Respirations: 16 (Maryellen Vitrano, RN) LaborFlag: Antepartum (QS system process) Datetime: 06/17/2016 14:40 Communication Comments: Reviewed with Baron Centeno, CNM pt SVE, toco tracing, and FHTs. Orders received to start Pitocin 20 units in 1000 mL NS at 2 mU/min increasing by 2 mU/min to a max of 20 mU/min or until an adequate pattern of labor is established. (Maryellen Vitrano, RN) Datetime: 06/17/2016 14:36 Patient Care Comments: IV infusing per order at 125 mL/hour (Maryellen Vitrano, RN) Datetime: 06/17/2016 14:30 Monitor Mode: External (Maryellen Vitrano, RN) Frequency (min): Irregular (Maryellen Vitrano, RN) Quality: Mild (Maryellen Vitrano, RN) Duration (sec): 50-60 (Maryellen Vitrano, RN) Duration Criteria: Less than Two 120 Second Contractions (Maryellen Vitrano, RN) Pattern: Normal: <= 5 Contractions in 10 Minutes (Maryellen Vitrano, RN) Resting Tone (Palpate): Relaxed (Maryellen Vitrano, RN) Monitor Mode: External US (Maryellen Vitrano, RN) FHR Baseline Rate : 140 (Maryellen Vitrano, RN) Variability: Moderate 6-25 bpm (Maryellen Vitrano, RN) Accelerations: 15X15 (Maryellen Vitrano, RN) Decelerations: None (Maryellen Vitrano, RN) Patient Care Comments: Consents reviewed and signed. (Mrayellen Vitrano, RN) Datetime: 06/17/2016 14:28 Patient Care Comments: Labs drawn (Maryellen Vitrano, RN) Datetime: 06/17/2016 14:23 Monitor Interventions for FHR: Ultrasound Adjusted (Maryellen Vitrano, RN) Datetime: 06/17/2016 14:22 Dilatation (cm): 1.0 (Maryellen Vitrano, RN) Effacement (%): 50 (Maryellen Vitrano, RN) Station: -3 (Maryellen Vitrano, RN) Exam by: R. Vitrano, RN (Maryellen Vitrano, RN) Datetime: 06/17/2016 14:20 Monitor Interventions for UA: [place] Adjusted (Maryellen Vitrano, RN) Datetime: 06/17/2016 14:19 Communication Comments: Baron Centeno CNM at bedside to assess pt/review POC (Maryellen Vitrano, RN) Datetime: 06/17/2016 14:17 IV/Blood Work: IV Started; IV Bolus Started; IV Infusing per Order (Maryellen Helene RN) Patient Care Comments: 18 G L wrist site WNL; LR bolusing per order (Maryellen Vitrano, RN) Datetime: 06/17/2016 14:11 NBP Sys/Monserrat/Mean (mmHg): 129 (QS system process) : 74 (QS system process) : 94 (QS system process) Pulse: 93 (QS system process) Respirations: 16 (Maryellen Vitrano, RN) Frequency (min): Irregular (Maryellen Pasqualeano, RN) Pain Scale: 3 (Maryellen Pasqualeano, RN) Pain Presence: Intermittent (Maryellen Vitrano, RN) Pain Type: Contraction (Maryellen Vitrano, RN) Pain Location: Abdomen; Back (Maryellen Helene, RN) Pain Relief Measures: Comfort Measures (Maryellen Helene, RN) Pain Coping: Talking Through Contractions (Maryellen Helene, RN) Membrane Status: Ruptured (Annotations: Pt grossly ruptured) (Maryellengigi Narayan, RN) Membranes Ruptured Date/Time: 06/17/2016 13:30 (Maryellen Helene, RN) Membranes Rupture Method: Spontaneous (Maryellen Helene, RN) Amniotic Fluid Color: Moderate Meconium (Maryellen Pasqualeano, RN) Amniotic Fluid Amount: Moderate (Maryellen Vitrano, RN) Amniotic Fluid Odor: Normal (Maryellen Pasqualeano, RN) Vaginal Bleeding: None (Maryellen Vitrano, RN) Level of Consciousness: Fully Conscious (Maryellen Pasqualeano, RN) DTR's/Clonus: DTRs 2+; No Clonus (Maryellen Vitrano, RN) Headache: Denies (Maryellen Vitrano, RN) Breath Sounds, Left: Clear and Equal (Maryellen Vitrano, RN) Breath Sounds, Right: Clear and Equal (Maryellen Vitrano, RN) Nausea/Vomiting: Denies (Maryellen Vitrano, RN) RUQ Epigastric Pain: Denies (Maryellen Vitrano, RN) LaborFlag: Antepartum (QS system process) Datetime: 06/17/2016 14:09 Patient Position/Activity: Right Tilt; Semi-Fowlers (Maryellen Narayan, RN) I/O Interventions: Clear Liquids Given (Maryellen Narayan, RN) Instructional Method: Verbal; Patient Instructed; Family/Support Person Instructed; Verbalized Understanding (Maryellen Narayan, KEELY) Plan of Care: Plan of Care Discussed (Maryellen Narayan RN) Unit Routine: [place] to Room; [place]; Bed; Unit Personnel; Monitoring; Safety/Fall Risk Prevention; Bathroom Privileges (Maryellen Narayan, KEELY)
[2016-06-17] MEDS ORDERED: FENTANYL/BUPIVACAINE/NS/PF 200 MCG/100 ML RTUINJ EPI ONE (20:08)
[2016-06-17] MEDS ORDERED: BUPIVACAINE HCL 0.25 % INJ/PF (2.5 MG/1 ML) 30 ML VIAL ONE (20:08)
[2016-06-17] MEDS ORDERED: EPHEDRINE SULFATE INJ 50 MG/1 ML AMPULE ONE (20:08)
[2016-06-17] MEDS ORDERED: LIDOCAINE 1% INJ-PF (10 MG/ML) 30 ML SDV ONE (23:16)
[2016-06-17] MEDS ORDERED: MISOPROSTOL 0.2 MG TABLET ONE (23:16)
[2016-06-18] MEDS ORDERED: OXYTOCIN/NORMAL SALINE 1,000 ML IV PRN (01:02)
[2016-06-18] MEDS ORDERED: DIBUCAINE 1% OINTMENT 28 GM TP PRN (01:02)
[2016-06-18] MEDS ORDERED: DIPH/PERTUSS(ACELL)/TETANUS VAC/PF 0.5 ML SYR (>=10YO) IM PRN (01:02)
[2016-06-18] MEDS ORDERED: MEASLES,MUMPS&RUBELLA VACC/PF 0.5 ML VIAL SUBCUT PRN (01:02)
[2016-06-18] MEDS ORDERED: ACETAMINOPHEN WITH CODEINE #3 TABLET PO PRN ×2 (01:02)
[2016-06-18] MEDS ORDERED: ZOLPIDEM TARTRATE 5 MG TABLET PO PRN (01:02)
[2016-06-18] MEDS ORDERED: BENZOCAINE/MENTHOL AEROSOL SPRAY 56 ML TOP PRN (01:02)
[2016-06-18] MEDS ORDERED: IBUPROFEN 800 MG TABLET ONE (01:14)
[2016-06-18] MEDS: OXYTOCIN/NORMAL SALINE 1,000 ML IV PRN (01:19)
--- NOTE | 2016-06-18 03:11 | Admission Physical ---
Datetime Report Generated by CPN: 06/18/2016 03:10 CURRENT ADMISSION Chief Complaint: Suspected Ruptured Membranes Indication for Induction: Not Applicable Admit Impression- Other: SROM at 1330- light meconium Admit Plan: Admit to Unit; Initiate Labor Protocol ALLERGIES Medication Allergies: No Medication Allergies: No Known Allergies (06/17/2016) Medication Allergies: No Known Allergies (05/16/2016) Medication Allergies: No Known Allergies (05/10/2016) Medication Allergies: No Known Allergies (06/02/2013) Latex: No Latex Allergies Food Allergies: N/A Environmental Allergies: N/A OBSTETRICAL HISTORY EDC: 06/15/2016 00:00 : 4 Para: 1 Para: 1 Para: 1 Term: 1 : 0 SAB: 1 IAB: 1 Ectopic: 0 Livin Cesareans: 0 VBACs: 0 Multiple Births: 0 Gestational Diabetes: No Rh Sensitization: No Incompetent Cervix: No THEO: No Infertility: No ART Treatment: No Uterine Anomaly: No IUGR: No Hx Previous C/S: No Macrosomia: No Hx Loss/Stillborn: No PIH: No Hx : No Placenta Previa/Abruption: No Depression/PP Depression: No PTL/PROM: No Post Hemorrhage: No Current Procedures: Ultrasound; NST Obstetrical History Comments: G1: 05/2013 , no complications G2: 04/2015 EAB 6 weeks G3: 06/2015 SAB 6 weeks G4: Current; Late Care at 19 weeks SEE RECORDS Alcohol: No Marijuana : No Cocaine: No Other Illicit Drugs: No Cigarettes: Former Smoker. [id number] MEDICAL HISTORY Diabetes: No Blood Transfusion: No Pulmonary Disease (Asthma, TB): No Breast Disease: No Hypertension: No Research Lab Assistant Surgery: No Heart Disease: No Hosp/Surgery: Yes Autoimmune Disorder: No Anesthetic Complications: No Kidney Disease: No Abnormal Pap Smear: No Neuro/Epilepsy: No Psychiatric Disorders: No Other Medical Diseases: No Hepatitis/Liver Disease: No Significant Family History: No Varicosities/Phlebitis: No Trauma/Violence : No Thyroid Dysfunction: No Medical History Comments: Hospitalization, Surgery: Childbirth, [place] teeth INFECTIOUS HISTORY Gonorrhea: No Genital Herpes: No Chlamydia: Yes Tuberculosis: No Syphilis: No Hepatitis: No HIV/AIDS Exposure: No Rash or Viral Illness: No HPV: No Infectious History Comments: Chlamydia 2014 treated PHYSICAL EXAM General: Normal HEENT: Normal Neurologic: Normal Thyroid: Deferred Heart: Normal Lungs: Normal Breast: Deferred Back: Normal Abdomen: Normal Genitourinary Exam: Normal Extremities: Normal DTRs: Normal Pelvic Type: Adequate Physical Exam Comments: Gravid Vital Signs: Reviewed VAGINAL EXAM Dilatation: 1 Effacement: 50 Station: -3 MEMBRANES Membranes: Ruptured Amniotic Fluid Color: Meconium, Light FETUS A EGA: 40.2 Monitoring: External US FHR- Baseline: 140 Variability: Minimal - Undetectable to <=5bpm Accelerations: Absent Decelerations: None Presentation: Vertex Admit Comment: SROM at 1330 today. Light meconium, not particulate [facility] transfer at 24 wks to [facility]-late onset PNC at 19 wks. UTI seecond trimester-treated See records. PLANS FOR LABOR AND DELIVERY Labor and Delivery: Plan Pain Management: Epidural Feeding Preference: Breast Benefit of Breast Feed Discussed: Yes Circumcision: N/A INFORMED CONSENT Assignment: Marine Mathews MD Signature: with User ID: [email or web address] : with User ID: [email or web address] : I personally evaluated and examined the patient in conjunction with the MLP and agree with the assessment, treatment plan and disposition.
--- NOTE | 2016-06-18 03:20 | Delivery Summary ---
Del Sum A-C Datetime Report Generated by CPN: 06/18/2016 03:20 ADMISSION DATA Chief Complaint: Suspected Ruptured Membranes Indication for Induction: Not Applicable Admission Impression: Term, Intrauterine ; Ruptured Membranes Admission Impression Comments: SROM at 1330- light meconium Admit Provider Comments: SROM at 1330 today. Light meconium, not particulate [facility] transfer at 24 wks to [facility]-late onset PNC at 19 wks. UTI seecond trimester-treated See records. DELIVERY PERSONNEL Delivery Doctor:: Marine Mathews MD Labor and Delivery Nurse:: Jessica Burrell RNemployee benefits coordinator Nurse:: Hue Dockery RN Nursery Nurse:: Bindu Mahajan RN Electric Refrigerator Servicer/INDUSTRIAL CAFETERIA MANAGER: Saad Friend CNA MATERNAL INFORMATION Delivery Anesthesia: Epidural Medications After Delivery: Pitocin Bolus-Please Comment Meds After Delivery Comment: pitocin 20 units in 1000 ml NS Maternal Complications: None Provider Comments: Pt progressed to of female with apgars of 8 and 9. Head delivered oa. Shoulders delivered with Brandie and suprapubic pressure. RADAR OPERATOR/OP bulb suctioned. Cord clamped and cut. Placenta spontaneous and intact. Mom and baby doing well. LABOR SUMMARY EDC: 06/15/2016 00:00 No. Babies in Womb: 1 Attempted: No Labor Anesthesia: Epidural LABOR INFORMATION Reason for Induction: Not Applicable Onset of Labor: 06/17/2016 17:33 Complete Dilatation: 06/18/2016 23:26 Oxytocin: Augmentation Group B Beta Strep: negative Antibiotics # of Doses: 0 Antibiotics Time of Last Dose: n/a Steroids Given: None Reason Steroids Not Administered: Not Applicable MEMBRANES Membranes Rupture Method: Spontaneous Rupture of Membranes: 06/17/2016 13:30 Length of Rupture (hr): 11.20 Amniotic Fluid Color: Moderate Meconium Amniotic Fluid Amount: Moderate Amniotic Fluid Odor: Normal STAGES OF LABOR Stage 1 hr: 29 Stage 1 min: 53 Stage 2 hr: -22 Stage 2 min: -44 Stage 3 hr: 0 Stage 3 min: 6 Total Time in Labor hr: 7 Total Time in Labor min: 15 VAGINAL DELIVERY Episiotomy: None Laceration Extension: N/A Laceration Type: None Laceration Repair: Not Applicable Sponge Count Correct: N/A Sharps Count Correct: N/A CSECTION DELIVERY Primary Indication: N/A Secondary Indication: N/A CSection Incidence: N/A Labor: N/A Elective: N/A CSection Incision: N/A BABY A INFORMATION Infant Delivery Date/Time: 06/18/2016 00:42 Method of Delivery: Vaginal Born in Route : No : N/A Forceps: N/A Vacuum Extraction: N/A Shoulder Dystocia : Yes SHOULDER DYSTOCIA BABY A Delivery of Head: 06/18/2016 00:41 Time Head to Delivery : 1.0 1st Intervention to Resolve: McRobert's Maneuver 2nd Intervention to Resolve: Suprapubic Pressure Verify NO Fundal Pressure: No Fundal Pressure Applied Arm Under Symphisis at Del: Left PRESENTATION/POSITION BABY A Presentation: Cephalic Cephalic Presentation: Vertex Vertex Position: Left Occipital Anterior Breech Presentation: N/A PLACENTA INFORMATION BABY A Placenta Delivery Time : 06/18/2016 00:48 Placenta Method of Delivery: Spontaneous Placenta Status: Delivered SCORES BABY A Heart Rate 1 min: >100 bpm Resp Effort 1 min: Good Cry Reflex Irritability 1 min: Cough or Sneeze or Pulls Away Muscle Tone 1 min: Active Motion Color 1 min: Blue/Pale Resuscitation Effort 1 min: Tactile Stimulation SCORE 1 MIN: 8 Heart Rate 5 min: >100 bpm Resp Effort 5 min: Good Cry Reflex Irritability 5 min: Cough or Sneeze or Pulls Away Muscle Tone 5 min: Active Motion Color 5 min: Body [place], Extremities Blue Resuscitation Effort 5 min: Tactile Stimulation SCORE 5 MIN: 9 INFANT INFORMATION BABY A Gestational Age at Delivery: 40.3 Gestational Status: Full Term- 39- 40.6 Weeks Outcome : Liveborn Infant Condition : Stable Infant Sex: Female IDENTIFICATION BABY A Verification Date/Time: 06/18/2016 00:48 ID Band Number: [id number] Mother's Name Verified: Yes RN Verifying : Abelino LaraUrsula RIGGS Additional Verifying Personnel: DUrsula Sirisha WEIGHT/LENGTH BABY A Birthweight (gm): 4630 Infant Weight (lb): 10 Weight (oz): 3 Infant Length (in): 21.75 Length (cm): 55.25 CORD INFORMATION BABY A No. Cord Vessels: 3 Nuchal Cord : N/A Cord Blood Taken: Yes-For Storage (Mom's Blood type +) Suction: Mouth; Nose ASSESSMENT BABY A Infant Complications: None Physical Findings at Delivery: Within Normal Limits Respirations: Appears Normal Skin to Skin: Yes Skin to Skin Time (min): 60 Asbestos Microscopist/ALS Called : No Care By: Daina Mahajan RN Transferred To: Remains with Mother BABY B INFORMATION : N/A SIGNATURES Signature: with User ID: [email or web address] : I personally evaluated and examined the patient in conjunction with the MLP and agree with the assessment, treatment plan and disposition.
[2016-06-18] MEDS: IBUPROFEN 800 MG TABLET PO SCH ×3 (06:32→22:10)
--- NOTE | 2016-06-18 07:01 | L&D Flow Sheet ---
LD Flowsheet Datetime Report Generated by CPN: 06/18/2016 07:00 Datetime: 06/18/2016 02:45 Pain Scale: 1 (Jessica Indra, RN) Pain Presence: Constant (Jessica Indra, RN) Pain Type: Ache (Jessica Indra, RN) Pain Location: Perineum (Jessica Indra, RN) Datetime: 06/18/2016 02:40 NBP Sys/Monserrat/Mean (mmHg): 104 (QS system process) : 55 (QS system process) : 74 (QS system process) Pulse: 88 (QS system process) Datetime: 06/18/2016 02:33 NBP Sys/Monserrat/Mean (mmHg): 110 (QS system process) : 60 (QS system process) : 79 (QS system process) Pulse: 85 (QS system process) Datetime: 06/18/2016 02:30 Pain Scale: 1 (Jessica Indra, RN) Pain Presence: Constant (Jessica Indra, RN) Pain Type: Ache (Jessica Indra, RN) Pain Location: Perineum (Jessica Indra, RN) Datetime: 06/18/2016 02:18 NBP Sys/Monserrat/Mean (mmHg): 110 (QS system process) : 63 (QS system process) : 81 (QS system process) Pulse: 88 (QS system process) Datetime: 06/18/2016 02:15 Pain Scale: 1 (Jessica Indra, RN) Pain Presence: Constant (Jessica Indra, RN) Pain Type: Ache (Jessica Indra, RN) Pain Location: Perineum (Jessica Indra, RN) Datetime: 06/18/2016 02:03 NBP Sys/Monserrat/Mean (mmHg): 106 (QS system process) : 64 (QS system process) : 79 (QS system process) Pulse: 98 (QS system process) Datetime: 06/18/2016 02:00 Pain Scale: 1 (Jessica Indra, RN) Pain Presence: Constant (Jessica Indra, RN) Pain Type: Ache (Jessica Indra, RN) Pain Location: Perineum (Jessica Indra, RN) Datetime: 06/18/2016 01:48 NBP Sys/Monserrat/Mean (mmHg): 109 (QS system process) : 61 (QS system process) : 77 (QS system process) Pulse: 96 (QS system process) Datetime: 06/18/2016 01:45 Pain Scale: 1 (Jessica Indra, RN) Pain Presence: Constant (Jessica Indra, RN) Pain Type: Ache (Jessica Indra, RN) Pain Location: Perineum (Jessica Indra, RN) Datetime: 06/18/2016 01:33 NBP Sys/Monserrat/Mean (mmHg): 112 (QS system process) : 62 (QS system process) : 79 (QS system process) Pulse: 100 (QS system process) Datetime: 06/18/2016 01:30 Pain Scale: 1 (Jessica Indra, RN) Pain Presence: Constant (Jessica Indra, RN) Pain Type: Ache (Jessica Indra, RN) Pain Location: Perineum (Jessica Indra, RN) Datetime: 06/18/2016 01:18 NBP Sys/Monserrat/Mean (mmHg): 103 (QS system process) : 58 (QS system process) : 80 (QS system process) Pulse: 101 (QS system process) Datetime: 06/18/2016 01:15 Pain Scale: 1 (Jessica Indra, RN) Pain Presence: Constant (Jessica Indra, RN) Pain Type: Ache (Jessica Indra, RN) Pain Location: Perineum (Jessica Indra, RN) Datetime: 06/18/2016 01:04 NBP Sys/Monserrat/Mean (mmHg): 113 (QS system process) : 56 (QS system process) : 80 (QS system process) Pulse: 110 (QS system process) Datetime: 06/18/2016 01:00 Pain Scale: 1 (Jessica Indra, RN) Pain Presence: Constant (Jessica Indra, RN) Pain Type: Ache (Jessica Indra, RN) Pain Location: Perineum (Jessica Indra, RN) Datetime: 06/18/2016 00:48 NBP Sys/Monserrat/Mean (mmHg): 111 (QS system process) : 56 (QS system process) : 77 (QS system process) Pulse: 108 (QS system process) Temperature (F): 100.0 (Jessica Indra, RN) Temperature (C): 37.8 (QS system process) Temperature Route: Axillary (Jessica Indra, RN) Datetime: 06/18/2016 00:42 Stage of : Recovery (Jessica Indra, RN) Datetime: 06/18/2016 00:41 Monitor Mode: External US (Jessica Indra, RN) FHR Baseline Rate : 145 (Jessica Indra, RN) Variability: Moderate 6-25 bpm (Jessica Indra, RN) Accelerations: 15X15 (Jessica Indra, RN) Decelerations: Early; Variable (Jessica Indra, RN) Comments: broken tracing, RN remains at bedside adjusting u/s continously monitoring fht (Jessica Indra, RN) Datetime: 06/18/2016 00:37 Monitor Mode: External (Jessica Indra, RN) Frequency (min): 1-2 (Jessica Indra, RN) Quality: Strong (Jessica Indra, RN) Duration (sec): 40-80 (Jessica Indra, RN) Duration Criteria: Less than Two 120 Second Contractions (Jessica Indra, RN) Pattern: Normal: <= 5 Contractions in 10 Minutes (Jessica Indra, RN) Resting Tone (Palpate): Relaxed (Jessica Indra, RN) Datetime: 06/18/2016 00:36 Contraction Comments: toco removed for delivery (Jessica Indra, RN) Datetime: 06/18/2016 00:35 NBP Sys/Monserrat/Mean (mmHg): 119 (QS system process) : 63 (QS system process) : 78 (QS system process) Pulse: 113 (QS system process) LaborFlag: Labor (QS system process) Datetime: 06/18/2016 00:30 Monitor Mode: External (Jessica Indra, RN) Frequency (min): 1-2.5 (Jessica Indra, RN) Quality: Strong (Jessica Indra, RN) Duration (sec): 40-80 (Jessica Indra, RN) Duration Criteria: Less than Two 120 Second Contractions (Jessica Indra, RN) Pattern: Normal: <= 5 Contractions in 10 Minutes (Jessica Indra, RN) Resting Tone (Palpate): Relaxed (Jessica Indra, RN) Monitor Mode: External US (Jessica Indra, RN) Variability: Moderate 6-25 bpm (Jessica Indra, RN) Accelerations: 15X15 (Jessica Indra, RN) Decelerations: Early (Jessica Indra, RN) Comments: unable to determine baseline, broken tracing, pt. pushing and RN remains at bedside adusting u/s and monitoring FHT (Jessica Indra, RN) Pitocin (milliunit): Pitocin Remains (milliunits) @ 20 (Jessica Indra, RN) Datetime: 06/18/2016 00:22 Stage 2 Comments: pushing pulling behind the knees (Jessica Indra, RN) Datetime: 06/18/2016 00:21 Patient Care Comments: in and out cath returns drops of urine (Jessica Indra, RN) Datetime: 06/18/2016 00:20 NBP Sys/Monserrat/Mean (mmHg): 118 (QS system process) : 59 (QS system process) : 80 (QS system process) Pulse: 100 (QS system process) LaborFlag: Labor (QS system process) Datetime: 06/18/2016 00:19 Pushing: Coached on Pushing (Jessica Indra, RN) Datetime: 06/18/2016 00:15 Monitor Mode: External (Jessica Indra, RN) Frequency (min): 1.5-2 (Jessica Indra, RN) Quality: Strong (Jessica Indra, RN) Duration (sec): 50-80 (Jessica Indra, RN) Duration Criteria: Less than Two 120 Second Contractions (Jessica Indra, RN) Pattern: Normal: <= 5 Contractions in 10 Minutes (Jessica Indra, RN) Resting Tone (Palpate): Relaxed (Jessica Indra, RN) Monitor Mode: External US (Jessica Indra, RN) FHR Baseline Rate : 145 (Jessica Indra, RN) Variability: Moderate 6-25 bpm (Jessica Indra, RN) Accelerations: 10X10 (Jessica Indra, RN) Decelerations: Early (Jessica Indra, RN) Pitocin (milliunit): Pitocin Remains (milliunits) @ 20 (Jessica Indra, RN) Datetime: 06/18/2016 00:08 Stage 2 Comments: pushing with handle bars (Jessica Indra, RN) Datetime: 06/18/2016 00:04 NBP Sys/Monserrat/Mean (mmHg): 117 (QS system process) : 57 (QS system process) : 82 (QS system process) Pulse: 104 (QS system process) LaborFlag: Labor (QS system process) Datetime: 06/18/2016 00:00 Monitor Mode: External; Palpation (Jessica Burrell RN) Frequency (min): 1.5-2 (Jessica Burrell RN) Quality: Strong (Jessica Burrell, RN) Duration (sec): 40-70 (Jessica Burrell, KEELY) Duration Criteria: Less than Two 120 Second Contractions (Jessica Burrell RN) Pattern: Normal: <= 5 Contractions in 10 Minutes (Jessica Burrell RN) Resting Tone (Palpate): Relaxed (Jessica Burrell, RN) Monitor Mode: External US (Jessica Burrell RN) FHR Baseline Rate : 145 (Jessica Burrell RN) Variability: Moderate 6-25 bpm (Jessica Burrell RN) Decelerations: Early (Jessica Burrell RN) Comments: unable to determine accels noted due to broken tracing, RN remains at bedside adjusting u/s and continously monitoring fht (Jessica Burrell RN) Pitocin (milliunit): Pitocin Remains (milliunits) @ 20 (Jessica Indra, RN) Datetime: 06/17/2016 23:56 Pulse: 108 (QS system process) SpO2 (%): 91 (QS system process) LaborFlag: Labor (QS system process) Datetime: 06/17/2016 23:55 Pulse: 106 (QS system process) SpO2 (%): 95 (QS system process) LaborFlag: Labor (QS system process) Datetime: 06/17/2016 23:50 Pulse: 107 (QS system process) SpO2 (%): 98 (QS system process) LaborFlag: Labor (QS system process) Datetime: 06/17/2016 23:49 NBP Sys/Monserrat/Mean (mmHg): 114 (QS system process) : 53 (QS system process) : 77 (QS system process) Pulse: 108 (QS system process) Patient Position/Activity: Right Tilt (Jessica Indra, RN) LaborFlag: Labor (QS system process) Datetime: 06/17/2016 23:46 Pulse: 202 (QS system process) SpO2 (%): 81 (QS system process) LaborFlag: Labor (QS system process) Datetime: 06/17/2016 23:45 Pulse: 98 (QS system process) SpO2 (%): 97 (QS system process) Temperature (F): 100.2 (Jessica Indra, RN) Temperature (C): 37.9 (QS system process) Temperature Route: Axillary (Jessica Indra, RN) Monitor Mode: External; Palpation (Jessica Indra, RN) Frequency (min): 1.5-2.5 (Jessica Indra, RN) Quality: Strong (Jessica Indra, RN) Duration (sec): 40-70 (Jessica Indra, RN) Duration Criteria: Less than Two 120 Second Contractions (Jessica Indra, RN) Pattern: Normal: <= 5 Contractions in 10 Minutes (Jessica Indra, RN) Resting Tone (Palpate): Relaxed (Jessica Indra, RN) Monitor Mode: External US (Jessica Indra, RN) FHR Baseline Rate : 135 (Jessica Indra, RN) Variability: Moderate 6-25 bpm (Jessica Indra, RN) Accelerations: 15X15 (Jessica Indra, RN) Decelerations: Early; Late; Variable (Jessica Indra, RN) Pitocin (milliunit): Pitocin Remains (milliunits) @ 20 (Jessica Indra, RN) LaborFlag: Labor (QS system process) Datetime: 06/17/2016 23:43 Pushing Position: Pushing Lithotomy (Jessica Indra, RN) Pushing Progress: Descent with Pushing (Jessica Indra, RN) Stage 2 Comments: pt. set up for delivery (Jessica Indra, RN) Datetime: 06/17/2016 23:34 NBP Sys/Monserrat/Mean (mmHg): 128 (QS system process) : 53 (QS system process) : 77 (QS system process) Pulse: 118 (QS system process) LaborFlag: Labor (QS system process) Datetime: 06/17/2016 23:31 Stage 2 Comments: pushing tug of war (Jessica Indra, RN) Datetime: 06/17/2016 23:30 Monitor Mode: External (Jessica Indra, RN) Frequency (min): 1.5-2 (Jessica Indra, RN) Quality: Strong (Jessica Indra, RN) Duration (sec): 50-70 (Jessica Indra, RN) Duration Criteria: Less than Two 120 Second Contractions (Jessica Indra, RN) Pattern: Normal: <= 5 Contractions in 10 Minutes (Jessica Indra, RN) Resting Tone (Palpate): Relaxed (Jessica Indra, RN) Monitor Mode: External US (Jessica Indra, RN) FHR Baseline Rate : 135 (Jessica Indra, RN) Variability: Moderate 6-25 bpm (Jessica Indra, RN) Accelerations: 15X15 (Jessica Indra, RN) Decelerations: Variable (Jessica Indra, RN) Pitocin (milliunit): Pitocin Remains (milliunits) @ 20 (Jessica Indra, RN) Datetime: 06/17/2016 23:27 Stage 2 Comments: pushing with handle bars (Jessica Indra, RN) Datetime: 06/17/2016 23:26 Dilatation (cm): 10.0 (Jessica Indra, RN) Pushing: Coached on Pushing (Jessica Indra, RN) Pushing Position: Pushing with Contractions (Jessica Indra, RN) Stage 2 Comments: RN remains at bedside adjusting u/s continuously montioring FHT (Jessica Indra, RN) Datetime: 06/17/2016 23:24 I/O Interventions: [place] Discontinued (Jessica Indra, RN) Datetime: 06/17/2016 23:15 Monitor Mode: External; Palpation (Jessica Indra, RN) Frequency (min): 2-2.5 (Jessica Indra, RN) Quality: Strong (Jessica Indra, RN) Duration (sec): 50-70 (Jessica Indra, RN) Duration Criteria: Less than Two 120 Second Contractions (Jessica Indra, RN) Pattern: Normal: <= 5 Contractions in 10 Minutes (Jessica Indra, RN) Resting Tone (Palpate): Relaxed (Jessica Indra, RN) Monitor Mode: External US (Jessica Indra, RN) FHR Baseline Rate : 135 (Jessica Indra, RN) Variability: Moderate 6-25 bpm (Jessica Indra, RN) Accelerations: None (Jessica Indra, RN) Decelerations: None (Jessica Indra, RN) Pitocin (milliunit): Pitocin Remains (milliunits) @ 20 (Jessica Indra, RN) Datetime: 06/17/2016 23:12 Dilatation (cm): 9.5 (Jessica Indra, RN) Exam by: Dr. Mathews (Jessica Indra, RN) Datetime: 06/17/2016 23:10 Stage of : Labor (Jessica Indra, RN) Pain Scale: 4 (Jessica Indra, RN) Pain Presence: Intermittent (Jessica Indra, RN) Pain Type: Contraction (Annotations: R hip) (Jessica Indra, RN) Pain Location: Abdomen (Jessica Burrell RN) Level of Consciousness: Fully Conscious (Jessica Burrell RN) DTR's/Clonus: DTRs 2+; No Clonus (Jessica Burrell RN) Headache: Denies (Jessica Burrell RN) Breath Sounds, Left: Clear and Equal (Jessica Burrell RN) Breath Sounds, Right: Clear and Equal (Jessica Burrell RN) Nausea/Vomiting: Denies (Jessica Burrell RN) RUQ Epigastric Pain: Denies (Jessica Burrell RN) IV/Blood Work: IV Infusing per Order (Jessica Burrell RN) Oxygen Method: Room Air (Jessica Burrell RN) Patient Position/Activity: Semi-Fowlers (Jessica Burrell RN) Hygiene: Underpad Changed (Jessica Burrell RN) Instructional Method: Verbal; Patient Instructed (Jessica Burrell RN) Unit Routine: [place] to Room; [place]; Bed (Jessica Burrell RN) Labor/Induction: Labor Stages (Jessica Burrell RN) LaborFlag: Labor (QS system process) Datetime: 06/17/2016 23:05 Communication Comments: Report to Juni Burrell RN; care relinquished (Maryellen Narayan RN) Datetime: 06/17/2016 23:04 NBP Sys/Monserrat/Mean (mmHg): 112 (QS system process) : 56 (QS system process) : 80 (QS system process) Pulse: 84 (QS system process) Respirations: 16 (Maryellen Vitrano, RN) LaborFlag: Antepartum (QS system process) Datetime: 06/17/2016 23:00 Monitor Mode: External; Palpation (Maryellen Vitrano, RN) Frequency (min): 2-3 (Maryellen Vitrano, RN) Quality: Moderate to Strong (Maryellen Vitrano, RN) Duration (sec): 50-70 (Maryellen Vitrano, RN) Duration Criteria: Less than Two 120 Second Contractions (Maryellen Vitrano, RN) Pattern: Normal: <= 5 Contractions in 10 Minutes (Maryellen Vitrano, RN) Resting Tone (Palpate): Relaxed (Maryellen Vitrano, RN) Monitor Mode: External US (Maryellen Vitrano, RN) FHR Baseline Rate : 135 (Maryellen Vitrano, RN) Variability: Moderate 6-25 bpm (Maryellen Vitrano, RN) Accelerations: None (Maryellen Vitrano, RN) Decelerations: None (Maryellen Vitrano, RN) Pitocin (milliunit): Pitocin Remains (milliunits) @ 20 (Maryellen Vitrano, RN) Datetime: 06/17/2016 22:49 NBP Sys/Monserrat/Mean (mmHg): 106 (QS system process) : 51 (QS system process) : 74 (QS system process) Pulse: 87 (QS system process) Respirations: 16 (Maryellen Vitrano, RN) Monitor Interventions for UA: [place] Adjusted (Maryellen Vitrano, RN) Monitor Interventions for FHR: Ultrasound Adjusted (Maryellen Vitrano, RN) LaborFlag: Antepartum (QS system process) Datetime: 06/17/2016 22:45 Monitor Mode: External (Maryellen Vitrano, RN) Frequency (min): 2-3.5 (Maryellen Vitrano, RN) Quality: Moderate to Strong (Maryellen Vitrano, RN) Duration (sec): 50-70 (Maryellen Vitrano, RN) Duration Criteria: Less than Two 120 Second Contractions (Maryellen Vitrano, RN) Pattern: Normal: <= 5 Contractions in 10 Minutes (Maryellen Vitrano, RN) Resting Tone (Palpate): Relaxed (Maryellen Vitrano, RN) Monitor Mode: External US (Maryellen Vitrano, RN) FHR Baseline Rate : 135 (Maryellen Vitrano, RN) Variability: Moderate 6-25 bpm (Maryellen Vitrano, RN) Accelerations: None (Maryellen Vitrano, RN) Decelerations: None (Maryellen Vitrano, RN) Pitocin (milliunit): Pitocin Remains (milliunits) @ 20 (Maryellen Vitrano, RN) Datetime: 06/17/2016 22:44 Monitor Interventions for FHR: Ultrasound Adjusted (Maryellen Vitrano, RN) Datetime: 06/17/2016 22:42 Patient Position/Activity: Left Extreme; Peanut Ball (Maryellen Vitrano, RN) Datetime: 06/17/2016 22:36 NBP Sys/Monserrat/Mean (mmHg): 101 (QS system process) : 65 (QS system process) : 77 (QS system process) Pulse: 87 (QS system process) Respirations: 16 (Maryellen Vitrano, RN) LaborFlag: Antepartum (QS system process) Datetime: 06/17/2016 22:30 Monitor Mode: External (Maryellen Vitrano, RN) Frequency (min): 2-3 (Maryellen Vitrano, RN) Quality: Moderate to Strong (Maryellen Vitrano, RN) Duration (sec): 50-70 (Maryellen Vitrano, RN) Duration Criteria: Less than Two 120 Second Contractions (Maryellen Vitrano, RN) Pattern: Normal: <= 5 Contractions in 10 Minutes (Maryellen Vitrano, RN) Resting Tone (Palpate): Relaxed (Maryellen Vitrano, RN) Monitor Mode: External US (Maryellen Vitrano, RN) FHR Baseline Rate : 130 (Maryellen Vitrano, RN) Variability: Moderate 6-25 bpm (Maryellen Vitrano, RN) Accelerations: None (Maryellen Vitrano, RN) Decelerations: None (Maryellen Vitrano, RN) Pitocin (milliunit): Pitocin Remains (milliunits) @ 20 (Maryellen Vitrano, RN) Datetime: 06/17/2016 22:20 NBP Sys/Monserrat/Mean (mmHg): 112 (QS system process) : 68 (QS system process) : 83 (QS system process) Pulse: 94 (QS system process) Respirations: 16 (Maryellen Vitrano, RN) LaborFlag: Antepartum (QS system process) Datetime: 06/17/2016 22:15 Monitor Mode: External (Maryellen Vitrano, RN) Frequency (min): 2-2.5 (Maryellen Vitrano, RN) Quality: Moderate to Strong (Maryellen Vitrano, RN) Duration (sec): 50-70 (Maryellen Vitrano, RN) Duration Criteria: Less than Two 120 Second Contractions (Maryellen Vitrano, RN) Pattern: Normal: <= 5 Contractions in 10 Minutes (Maryellen Vitrano, RN) Resting Tone (Palpate): Relaxed (Maryellen Vitrano, RN) Monitor Mode: External US (Maryellen Vitrano, RN) FHR Baseline Rate : 135 (Maryellen Vitrano, RN) Variability: Moderate 6-25 bpm (Maryellen Vitrano, RN) Accelerations: None (Maryellen Vitrano, RN) Decelerations: None (Maryellen Vitrano, RN) Pitocin (milliunit): Pitocin Remains (milliunits) @ 20 (Maryellen Vitrano, RN) Datetime: 06/17/2016 22:12 Monitor Interventions for FHR: Ultrasound Adjusted (Maryellen Helene, RN) Patient Position/Activity: Peanut Ball; Right Extreme (Maryellen Vitrano, RN) Datetime: 06/17/2016 22:09 Dilatation (cm): 7.5 (Maryellen Vitrano, RN) Effacement (%): 90 (Maryellen Vitrano, RN) Station: 0 (Maryellen Vitrano, RN) Exam by: Dr. Mathews (Maryellen Pasqualeano, RN) Vaginal Bleeding: None (Maryellen Vitrano, RN) Cervix, Consistency: Soft (Maryellen Vitrano, RN) Cervix, Position: Anterior (Maryellen Vitrano, RN) Datetime: 06/17/2016 22:04 NBP Sys/Monserrat/Mean (mmHg): 115 (QS system process) : 73 (QS system process) : 89 (QS system process) Pulse: 96 (QS system process) Respirations: 16 (Maryellen Vitrano, RN) Temperature (F): 97.9 (Maryellen Vitrano, RN) Temperature (C): 36.6 (QS system process) Temperature Route: Oral (Maryellen Vitrano, RN) LaborFlag: Antepartum (QS system process) Datetime: 06/17/2016 22:00 Monitor Mode: External; Palpation (Maryellen Vitrano, RN) Frequency (min): 2-3 (Maryellen Vitrano, RN) Quality: Moderate to Strong (Maryellen Vitrano, RN) Duration (sec): 50-80 (Maryellen Vitrano, RN) Duration Criteria: Less than Two 120 Second Contractions (Maryellen Vitrano, RN) Pattern: Normal: <= 5 Contractions in 10 Minutes (Maryellen Vitrano, RN) Resting Tone (Palpate): Relaxed (Maryellen Vitrano, RN) Monitor Mode: External US (Maryellen Vitrano, RN) Monitor Interventions for FHR: Ultrasound Adjusted (Maryellen Vitrano, RN) FHR Baseline Rate : 130 (Maryellen Vitrano, RN) Variability: Moderate 6-25 bpm (Maryellen Vitrano, RN) Accelerations: 15X15 (Maryellen Vitrano, RN) Decelerations: Early (Maryellen Vitrano, RN) Pitocin (milliunit): Pitocin Remains (milliunits) @ 20 (Maryellen Vitrano, RN) Patient Position/Activity: Right Tilt; Tailors (Maryellen Vitrano, RN) Datetime: 06/17/2016 21:49 NBP Sys/Monserrat/Mean (mmHg): 108 (QS system process) : 56 (QS system process) : 75 (QS system process) Pulse: 85 (QS system process) Respirations: 16 (Maryellen Vitrano, RN) LaborFlag: Antepartum (QS system process) Datetime: 06/17/2016 21:45 Monitor Mode: External (Maryellen Vitrano, RN) Frequency (min): 2-4 (Maryellen Vitrano, RN) Quality: Moderate to Strong (Maryellen Vitrano, RN) Duration (sec): 50-70 (Maryellen Vitrano, RN) Duration Criteria: Less than Two 120 Second Contractions (Maryellen Vitrano, RN) Pattern: Normal: <= 5 Contractions in 10 Minutes (Maryellen Vitrano, RN) Resting Tone (Palpate): Relaxed (Maryellen Vitrano, RN) Monitor Mode: External US (Maryellen Vitrano, RN) FHR Baseline Rate : 130 (Maryellen Vitrano, RN) Variability: Moderate 6-25 bpm (Maryellen Vitrano, RN) Accelerations: 15X15 (Maryellen Vitrano, RN) Decelerations: Variable (Maryellen Vitrano, RN) Pitocin (milliunit): Pitocin Remains (milliunits) @ 20 (Maryellen Vitrano, RN) Datetime: 06/17/2016 21:35 NBP Sys/Monserrat/Mean (mmHg): 113 (QS system process) : 69 (QS system process) : 86 (QS system process) Pulse: 95 (QS system process) Respirations: 16 (Maryellen Vitrano, RN) Patient Position/Activity: Left Lateral (Maryellen Vitrano, RN) LaborFlag: Antepartum (QS system process) Datetime: 06/17/2016 21:30 Monitor Mode: External (Maryellen Vitrano, RN) Frequency (min): 2-4 (Maryellen Vitrano, RN) Quality: Moderate to Strong (Maryellen Vitrano, RN) Duration (sec): 50-80 (Maryellen Vitrano, RN) Duration Criteria: Less than Two 120 Second Contractions (Maryellen Vitrano, RN) Pattern: Normal: <= 5 Contractions in 10 Minutes (Maryellen Vitrano, RN) Resting Tone (Palpate): Relaxed (Maryellen Vitrano, RN) Monitor Mode: External US (Maryellen Vitrano, RN) FHR Baseline Rate : 135 (Maryellen Vitrano, RN) Variability: Moderate 6-25 bpm (Maryellen Vitrano, RN) Accelerations: None (Maryellen Vitrano, RN) Decelerations: Late (Maryellen Vitrano, RN) Pitocin (milliunit): Pitocin Increased to (milliunits) @ 20 (Maryellen Vitrano, RN) Datetime: 06/17/2016 21:15 Monitor Mode: External (Maryellen Vitrano, RN) Frequency (min): 2-3 (Maryellen Vitrano, RN) Quality: Moderate to Strong (Maryellen Vitrano, RN) Duration (sec): 50-90 (Maryellen Vitrano, RN) Duration Criteria: Less than Two 120 Second Contractions (Maryellen Vitrano, RN) Pattern: Normal: <= 5 Contractions in 10 Minutes (Maryellen Vitrano, RN) Resting Tone (Palpate): Relaxed (Maryellen Vitrano, RN) Monitor Mode: External US (Maryellen Vitrano, RN) FHR Baseline Rate : 135 (Maryellen Vitrano, RN) Variability: Moderate 6-25 bpm (Maryellen Vitrano, RN) Accelerations: 15X15 (Maryellen Vitrano, RN) Decelerations: None (Maryellen Vitrano, RN) Pitocin (milliunit): Pitocin Remains (milliunits) @ 18 (Maryellen Vitrano, RN) Datetime: 06/17/2016 21:14 NBP Sys/Monserrat/Mean (mmHg): 113 (QS system process) : 71 (QS system process) : 85 (QS system process) Pulse: 91 (QS system process) Respirations: 16 (Maryellen Vitrano, RN) LaborFlag: Antepartum (QS system process) Datetime: 06/17/2016 21:09 NBP Sys/Monserrat/Mean (mmHg): 118 (QS system process) : 63 (QS system process) : 84 (QS system process) Pulse: 90 (QS system process) Respirations: 16 (Maryellen Vitrano, RN) LaborFlag: Antepartum (QS system process) Datetime: 06/17/2016 21:08 Pain Presence: None/Denies (Maryellen Vitrano, RN) Pain Type: N/A (Maryellen Vitrano, RN) Pitocin (milliunit): Pitocin Decreased to (milliunits) @ 18 (Maryellen Vitrano, RN) LaborFlag: Antepartum (QS system process) Datetime: 06/17/2016 21:04 NBP Sys/Monserrat/Mean (mmHg): 114 (QS system process) : 66 (QS system process) : 84 (QS system process) Pulse: 88 (QS system process) Respirations: 17 (Maryellen Vitrano, RN) LaborFlag: Antepartum (QS system process) Datetime: 06/17/2016 21:00 Monitor Mode: External; Palpation (Maryellen Vitrano, RN) Frequency (min): 2-2.5 (Maryellen Vitrano, RN) Quality: Moderate to Strong (Maryellen Vitrano, RN) Duration (sec): 50-70 (Maryellen Vitrano, RN) Duration Criteria: Less than Two 120 Second Contractions (Maryellen Vitrano, RN) Pattern: Normal: <= 5 Contractions in 10 Minutes (Maryellen Vitrano, RN) Resting Tone (Palpate): Relaxed (Maryellen Vitrano, RN) Monitor Mode: External US (Maryellen Vitrano, RN) FHR Baseline Rate : 135 (Maryellen Vitrano, RN) Variability: Moderate 6-25 bpm (Maryellen Vitrano, RN) Accelerations: None (Maryellen Vitrano, RN) Decelerations: None (Maryellen Vitrano, RN) Pitocin (milliunit): Pitocin Remains (milliunits) @ 20 (Maryellen Vitrano, RN) Datetime: 06/17/2016 20:59 NBP Sys/Monserrat/Mean (mmHg): 116 (QS system process) : 61 (QS system process) : 83 (QS system process) Pulse: 83 (QS system process) Respirations: 17 (Maryellen Vitrano, RN) LaborFlag: Antepartum (QS system process) Datetime: 06/17/2016 20:56 I/O Interventions: Clear Liquids Given (Maryellen Vitrano, RN) Patient Care Comments: Warm blankets given (Maryellen Vitrano, RN) Datetime: 06/17/2016 20:55 NBP Sys/Monserrat/Mean (mmHg): 128 (QS system process) : 75 (QS system process) : 91 (QS system process) Pulse: 90 (QS system process) Respirations: 17 (Maryellen Vitrano, RN) LaborFlag: Antepartum (QS system process) Datetime: 06/17/2016 20:53 Temperature (F): 97.9 (Maryellen Narayan RN) Temperature (C): 36.6 (QS system process) Temperature Route: Axillary (Maryellen Narayan RN) LaborFlag: Antepartum (QS system process) Datetime: 06/17/2016 20:51 IV/Blood Work: IV Infusing per Order (Maryellen Narayan RN) Patient Position/Activity: Left Tilt; Semi-Fowlers (Maryellen Narayan RN) Patient Care Comments: 125 mL/hour (Maryellen Narayan RN) Anesthesia Level Check: T10- Umbilicus (Maryellen Narayan RN) Datetime: 06/17/2016 20:49 Dilatation (cm): 7.0 (Jessica Burrell RN) Effacement (%): 50 (Jessica Burrell RN) Station: -1 (Jessica Burrell RN) Exam by: Dr. Mathews (Jessica Indra, RN) Datetime: 06/17/2016 20:47 NBP Sys/Monserrat/Mean (mmHg): 111 (QS system process) : 56 (QS system process) : 78 (QS system process) Pulse: 98 (QS system process) Respirations: 17 (Marylelen Vitrano RN) I/O Interventions: [place] Cath Inserted (Jessica Indra, RN) LaborFlag: Antepartum (QS system process) Datetime: 06/17/2016 20:46 NBP Sys/Monserrat/Mean (mmHg): 119 (QS system process) : 62 (QS system process) : 85 (QS system process) Pulse: 100 (QS system process) LaborFlag: Antepartum (QS system process) Datetime: 06/17/2016 20:45 NBP Sys/Monserrat/Mean (mmHg): 111 (QS system process) : 61 (QS system process) : 79 (QS system process) Pulse: 91 (QS system process) Monitor Mode: External (Maryellen Vitrano, RN) Frequency (min): 2-3 (Maryellen Vitrano, RN) Quality: Moderate to Strong (Maryellen Vitrano, RN) Duration (sec): 50-70 (Maryellen Vitrano, RN) Duration Criteria: Less than Two 120 Second Contractions (Maryellen Vitrano, RN) Pattern: Normal: <= 5 Contractions in 10 Minutes (Maryellen Vitrano, RN) Resting Tone (Palpate): Relaxed (Maryellen Vitrano, RN) Monitor Mode: External US (Maryellen Vitrano, RN) FHR Baseline Rate : 135 (Maryellen Vitrano, RN) Variability: Moderate 6-25 bpm (Maryellen Vitrano, RN) Accelerations: 15X15 (Maryellen Vitrano, RN) Decelerations: None (Maryellen Vitrano, RN) Pitocin (milliunit): Pitocin Remains (milliunits) @ 20 (Maryellen Vitrano, RN) Epidural Procedure Other: Pump Started (Jessica Burrell, RN) LaborFlag: Antepartum (QS system process) Datetime: 06/17/2016 20:44 NBP Sys/Monserrat/Mean (mmHg): 111 (QS system process) : 60 (QS system process) : 80 (QS system process) Pulse: 90 (QS system process) LaborFlag: Antepartum (QS system process) Datetime: 06/17/2016 20:43 NBP Sys/Monserrat/Mean (mmHg): 117 (QS system process) : 66 (QS system process) : 85 (QS system process) Pulse: 99 (QS system process) Patient Position/Activity: Left Tilt (Jessica Indra, RN) LaborFlag: Antepartum (QS system process) Datetime: 06/17/2016 20:42 NBP Sys/Monserrat/Mean (mmHg): 120 (QS system process) : 72 (QS system process) : 88 (QS system process) Pulse: 101 (QS system process) LaborFlag: Antepartum (QS system process) Datetime: 06/17/2016 20:41 NBP Sys/Monserrat/Mean (mmHg): 129 (QS system process) : 76 (QS system process) : 97 (QS system process) Pulse: 106 (QS system process) Patient Position/Activity: Left Tilt; Low Fowlers (Jessica Indra, RN) LaborFlag: Antepartum (QS system process) Datetime: 06/17/2016 20:40 NBP Sys/Monserrat/Mean (mmHg): 125 (QS system process) : 77 (QS system process) : 95 (QS system process) Pulse: 111 (QS system process) Respirations: 17 (Maryellen Vitrano, RN) LaborFlag: Antepartum (QS system process) Datetime: 06/17/2016 20:39 NBP Sys/Monserrat/Mean (mmHg): 130 (QS system process) : 85 (QS system process) : 102 (QS system process) Pulse: 103 (QS system process) Pulse: 99 (QS system process) SpO2 (%): 100 (QS system process) LaborFlag: Antepartum (QS system process) Datetime: 06/17/2016 20:38 NBP Sys/Monserrat/Mean (mmHg): 131 (QS system process) : 83 (QS system process) : 100 (QS system process) Pulse: 107 (QS system process) Anesthesia Plans: Epidural (Maryellen Vitrano, RN) Epidural Procedure: Loading Dose (Maryellen Vitrano, RN) LaborFlag: Antepartum (QS system process) Datetime: 06/17/2016 20:37 NBP Sys/Monserrat/Mean (mmHg): 131 (QS system process) : 85 (QS system process) : 99 (QS system process) Pulse: 103 (QS system process) Anesthesia Plans: Epidural (Maryellen Vitrano, RN) Epidural Procedure: Test Dose (Maryellen Vitrano, RN) LaborFlag: Antepartum (QS system process) Datetime: 06/17/2016 20:36 Anesthesia Plans: Epidural (Maryellen Vitrano, RN) Epidural Procedure: Cath Placed (Maryellen Vitrano, RN) Datetime: 06/17/2016 20:34 Pulse: 109 (QS system process) SpO2 (%): 100 (QS system process) LaborFlag: Antepartum (QS system process) Datetime: 06/17/2016 20:31 IV/Blood Work: New IV Bag Hung (Maryeleln Vitrano, RN) Datetime: 06/17/2016 20:30 Monitor Mode: External (Maryellen Vitrano, RN) Frequency (min): 2-3 (Maryellen Vitrano, RN) Quality: Moderate to Strong (Maryellen Vitrano, RN) Duration (sec): 50-60 (Maryellen Vitrano, RN) Duration Criteria: Less than Two 120 Second Contractions (Maryellen Vitrano, RN) Pattern: Normal: <= 5 Contractions in 10 Minutes (Maryellen Vitrano, RN) Resting Tone (Palpate): Relaxed (Maryellen Vitrano, RN) Monitor Mode: External US (Maryellen Vitrano, RN) FHR Baseline Rate : 135 (Maryellen Vitrano, RN) Variability: Moderate 6-25 bpm (Maryellen Vitrano, RN) Accelerations: None (Maryellen Vitrano, RN) Decelerations: None (Maryellen Vitrano, RN) Pitocin (milliunit): Pitocin Remains (milliunits) @ 20 (Maryellen Vitrano, RN) Datetime: 06/17/2016 20:29 Pulse: 116 (QS system process) SpO2 (%): 100 (QS system process) Procedure Verify: Correct Patient Identity; Correct Side and Site are Marked; Accurate Procedure Consent Form; Agreement on Procedure to be Done; Correct Patient Position; Relevant Images and Results are Properly Labeled and Displayed; Addressed Need to Administer Antibiotics or Fluids for Irrigation; Safety Precautions Based on Patient History or Medication Use (Maryellen Narayan RN) Anesthesia Plans: Epidural (Maryellen Narayan RN) Epidural Positioning: Sitting (Maryellen Narayan RN) Anesthesia Comments: Dr. Breaux at bedside for epidural (Maryellen Narayan RN) LaborFlag: Antepartum (QS system process) Datetime: 06/17/2016 20:27 Procedure Verify: Correct Patient Identity; Correct Side and Site are Marked; Accurate Procedure Consent Form; Agreement on Procedure to be Done; Correct Patient Position; Relevant Images and Results are Properly Labeled and Displayed; Addressed Need to Administer Antibiotics or Fluids for Irrigation; Safety Precautions Based on Patient History or Medication Use (Maryellen Narayan RN) Anesthesia Plans: Epidural (Maryellen Narayan RN) Anesthesia Comments: Dr. Breaux called for epidural (Maryellen Narayan RN) Datetime: 06/17/2016 20:19 IV/Blood Work: New IV Bag Hung (Maryellen Vitrano, RN) Datetime: 06/17/2016 20:15 Monitor Mode: External (Maryellen Vitrano, RN) Frequency (min): 2-3 (Maryellen Vitrano, RN) Quality: Moderate to Strong (Maryellen Vitrano, RN) Duration (sec): 50-70 (Maryellen Vitrano, RN) Duration Criteria: Less than Two 120 Second Contractions (Maryellen Vitrano, RN) Pattern: Normal: <= 5 Contractions in 10 Minutes (Maryellen Vitrano, RN) Resting Tone (Palpate): Relaxed (Maryellen Vitrano, RN) Monitor Mode: External US (Maryellen Vitrano, RN) FHR Baseline Rate : 135 (Maryellen Vitrano, RN) Variability: Moderate 6-25 bpm (Maryellen Vitrano, RN) Accelerations: 15X15 (Maryellen Vitrano, RN) Decelerations: None (Maryellen Vitrano, RN) Pitocin (milliunit): Pitocin Remains (milliunits) @ 20 (Maryellen Vitrano, RN) Datetime: 06/17/2016 20:11 NBP Sys/Monserrat/Mean (mmHg): 108 (QS system process) : 66 (QS system process) : 82 (QS system process) Pulse: 89 (QS system process) Respirations: 17 (Maryellen Vitrano, RN) LaborFlag: Antepartum (QS system process) Datetime: 06/17/2016 20:00 Monitor Mode: External; Palpation (Maryellen Vitrano, RN) Frequency (min): 2-3 (Maryellen Vitrano, RN) Quality: Moderate to Strong (Maryellen Vitrano, RN) Duration (sec): 50-90 (Maryellen Vitrano, RN) Duration Criteria: Less than Two 120 Second Contractions (Maryellen Vitrano, RN) Pattern: Normal: <= 5 Contractions in 10 Minutes (Maryellen Vitrano, RN) Resting Tone (Palpate): Relaxed (Maryellen Vitrano, RN) Monitor Mode: External US (Maryellen Vitrano, RN) FHR Baseline Rate : 140 (Maryellen Vitrano, RN) Variability: Moderate 6-25 bpm (Maryellen Vitrano, RN) Accelerations: 10X10 (Maryellen Vitrano, RN) Decelerations: None (Maryellen Vitrano, RN) Pitocin (milliunit): Pitocin Remains (milliunits) @ 20 (Maryellen Vitrano, RN) Datetime: 06/17/2016 19:54 Pain Assessment Comments: Pt remains on birthing ball, breathing through contractions; bolus started for epidural. (Maryellen Narayan RN) IV/Blood Work: IV Bolus Started (Maryellen Narayan RN) Procedure Verify: Correct Patient Identity; Correct Side and Site are Marked; Accurate Procedure Consent Form; Agreement on Procedure to be Done; Relevant Images and Results are Properly Labeled and Displayed; Addressed Need to Administer Antibiotics or Fluids for Irrigation; Safety Precautions Based on Patient History or Medication Use (Maryellen Narayan RN) Anesthesia Plans: Epidural (Maryellen Narayan RN) Instructional Method: Verbal; Patient Instructed; Verbalized Understanding (Maryellen Narayan RN) Plan of Care: Plan of Care Discussed (Maryellen Narayan RN) Communication Comments: Dr. Mathews on unit, reviewed strip. Orders received, pt may receive epidural. (Maryellen Narayan RN) LaborFlag: Antepartum (QS system process) Datetime: 06/17/2016 19:49 Instructional Method: Verbal; Patient Instructed; Verbalized Understanding (Maryellen Narayan RN) Plan of Care: Plan of Care Discussed (Maryellen Narayan RN) Datetime: 06/17/2016 19:48 Communication Comments: Dr. Mathews called, reviewed pt condition, toco tracing, FHTs, pt request for medication. Dr. Mathews states she will come to unit to assess pt. (Maryellen Vitrano, RN) Datetime: 06/17/2016 19:47 Monitor Interventions for FHR: Ultrasound Adjusted (Maryellen Vitrano, RN) Datetime: 06/17/2016 19:45 Monitor Mode: External; Palpation (Maryellen Vitrano, RN) Frequency (min): 2-4 (Maryellen Vitrano, RN) Quality: Moderate (Maryellen Vitrano, RN) Duration (sec): 50-70 (Maryellen Vitrano, RN) Duration Criteria: Less than Two 120 Second Contractions (Maryellen Vitrano, RN) Pattern: Normal: <= 5 Contractions in 10 Minutes (Maryellen Vitrano, RN) Resting Tone (Palpate): Relaxed (Maryellen Vitrano, RN) Monitor Mode: External US (Maryellen Vitrano, RN) FHR Baseline Rate : 135 (Maryellen Vitrano, RN) Variability: Moderate 6-25 bpm (Maryellen Vitrano, RN) Accelerations: 10X10 (Maryellen Vitrano, RN) Decelerations: None (Maryellen Vitrano, RN) Pain Coping: Requesting Pain Medication or Epidural (Maryellen Vitrano, RN) Pitocin (milliunit): Pitocin Remains (milliunits) @ 20 (Maryellen Vitrano, RN) Datetime: 06/17/2016 19:42 NBP Sys/Monserrat/Mean (mmHg): 115 (QS system process) : 69 (QS system process) : 85 (QS system process) Pulse: 87 (QS system process) Respirations: 17 (Maryellen Vitrano, RN) LaborFlag: Antepartum (QS system process) Datetime: 06/17/2016 19:30 Monitor Mode: External; Palpation (Maryellen Vitrano, RN) Frequency (min): 2-4 (Maryellen Vitrano, RN) Quality: Moderate (Maryellen Vitrano, RN) Duration (sec): 50-70 (Maryellen Vitrano, RN) Duration Criteria: Less than Two 120 Second Contractions (Maryellen Vitrano, RN) Pattern: Normal: <= 5 Contractions in 10 Minutes (Maryellen Vitrano, RN) Resting Tone (Palpate): Relaxed (Maryellen Vitrano, RN) Monitor Mode: External US (Maryellen Vitrano, RN) FHR Baseline Rate : 135 (Maryellen Vitrano, RN) Variability: Moderate 6-25 bpm (Maryellen Vitrano, RN) Accelerations: 10X10 (Maryellen Vitrano, RN) Decelerations: None (Maryellen Vitrano, RN) Pitocin (milliunit): Pitocin Remains (milliunits) @ 20 (Maryellen Vitrano, RN) Datetime: 06/17/2016 19:27 Monitor Interventions for UA: Stigler Adjusted (Maryellen Vitrano, RN) Datetime: 06/17/2016 19:15 Monitor Mode: External (Maryellen Vitrano, RN) Frequency (min): 2-3 (Maryellen Vitrano, RN) Quality: Mild/Moderate (Maryellen Vitrano, RN) Duration (sec): 50-70 (Maryellen Vitrano, RN) Duration Criteria: Less than Two 120 Second Contractions (Maryellen Vitrano, RN) Pattern: Normal: <= 5 Contractions in 10 Minutes (Maryellen Vitrano, RN) Resting Tone (Palpate): Relaxed (Maryellen Vitrano, RN) Monitor Mode: External US (Maryellen Vitrano, RN) FHR Baseline Rate : 135 (Maryellen Vitrano, RN) Variability: Moderate 6-25 bpm (Maryellen Vitrano, RN) Accelerations: None (Maryellen Vitrano, RN) Decelerations: None (Maryellen Vitrano, RN) Pitocin (milliunit): Pitocin Remains (milliunits) @ 20 (Maryellen Vitrano, RN) Datetime: 06/17/2016 19:11 NBP Sys/Monserrat/Mean (mmHg): 118 (QS system process) : 68 (QS system process) : 87 (QS system process) Pulse: 82 (QS system process) Respirations: 16 (Maryellen Vitrano, RN) LaborFlag: Antepartum (QS system process) Datetime: 06/17/2016 19:10 Pain Assessment Comments: Denies needs (Maryellen Vitrano, RN) Comfort Measures: Breathing/Relaxation (Maryellen Vitrvidya, RN) Patient Care Comments: Pt up to birthing ball (Maryellen Vitrano, RN) LaborFlag: Antepartum (QS system process) Datetime: 06/17/2016 19:05 Pitocin (milliunit): Pitocin Increased to (milliunits) @ 20 (Maryellen Vitrano, RN) I/O Interventions: Up to BR (Maryellen Vitrano, RN) Datetime: 06/17/2016 19:00 Monitor Mode: External; Palpation (Maryellen Helene, RN) Frequency (min): 1.5-3 (Maryellen Helene, RN) Quality: Mild/Moderate (Maryellen Vitrano, RN) Duration (sec): 50-90 (Maryellen Vitrano, RN) Duration Criteria: Less than Two 120 Second Contractions (Maryellen Helene, RN) Pattern: Normal: <= 5 Contractions in 10 Minutes (Maryellen Vitrano, RN) Resting Tone (Palpate): Relaxed (Maryellen Helene, RN) Monitor Mode: External US (Maryellen Helene, RN) FHR Baseline Rate : 135 (Maryellen Vitrano, RN) Variability: Moderate 6-25 bpm (Maryellen Vitrano, RN) Accelerations: 15X15 (Maryellen Vitrano, RN) Decelerations: None (Maryellen Vitrano, RN) Pitocin (milliunit): Pitocin Remains (milliunits) @ 18 (Maryellengigi Narayan, RN)
--- NOTE | 2016-06-18 09:07 | PDOC PROGRESS REPORT ---
Subjective-OB Subjective: Post Delivery Day: 21 year old. Denies any needs at this time Physical Exam (OB) Vital Signs: Temp Pulse Resp BP Pulse Ox 98.4 F 73 20 118/62 99 06/18/16 07:29 06/18/16 07:29 06/18/16 02:58 06/18/16 07:29 06/18/16 07:29 Intake & Output 06/17/16 06/18/16 06/19/16 06:59 06:59 06:59 Weight 82.8 kg - Lochia Lochia Amount: Small 10-25 ml Lochia Color: Rubra/Red - Abdomen Description: Soft Hernia Present: No Bowel Sounds: Normoactive Flatus Presence: Present Stool: No Fundal Description: Firm, Midline Fundal Height: u/u - u/2 Objective-Diagnostic Laboratory: 06/17/16 14:28 06/17/16 06/17/16 06/17/16 14:04 14:28 14:28 WBC 10.5 RBC 3.89 Hgb 10.2 L Hct 31.2 L MCV 80 MCH 26.1 L MCHC 32.5 RDW 14.9 H Plt Count 265 Seg Neutrophils % 77.5 Lymphocytes % 14.4 Monocytes % 6.9 Eosinophils % 0.8 Basophils % 0.4 Absolute Neutrophils 8.1 Absolute Lymphocytes 1.5 Absolute Monocytes 0.7 Absolute Eosinophils 0.1 Absolute Basophils 0.0 Urine Color YELLOW Urine Appearance SLIGHTLY-CLOUDY Urine pH 6.0 Ur Specific Pryor 1.015 Urine Protein NEGATIVE Urine Glucose (UA) NEGATIVE Urine Ketones NEGATIVE Urine Blood SMALL H Urine Nitrite NEGATIVE Ur Leukocyte Esterase NEGATIVE Blood Type A POSITIVE Antibody Screen NEGATIVE
[2016-06-18] MEDS: DOCUSATE SODIUM 100 MG CAPSULE PO SCH ×2 (09:28→17:11)
[2016-06-18] MEDS: SENNOSIDES/DOCUSATE 8.6-50 MG 1 EACH TABLET PO SCH (09:29)
[2016-06-18] MEDS: FERROUS SULFATE 325 MG TABLET PO SCH ×2 (09:29→17:10)
[2016-06-18] MEDS: PRENATAL VITAMIN W-O CA NO5/FE FUMARATE/FA CAPSULE PO SCH (09:29)
--- NOTE | 2016-06-18 18:01 | L&D General Admission ---
General Admit Datetime Report Generated by CPN: 06/18/2016 18:00 INFORMATION Patient Age: 21 (05/10/2016 15:57:QS system process) EDC: 06/15/2016 00:00 (05/10/2016 15:59:Shahnaz Allen RN) : 4 (05/10/2016 15:59:Shahnaz Allen RN) Para: 1 (05/16/2016 17:41:Shahnaz Allen RN) Term: 1 (05/10/2016 15:59:Shahnaz Allen RN) : 0 (05/10/2016 15:59:Shahnaz Allen RN) Spontaneous Abortions: 1 (05/10/2016 15:59:Shahnaz Allen RN) Induced Abortions: 1 (05/10/2016 15:59:Shahnaz Allen RN) Livin (05/10/2016 15:59:Shahnaz Allen RN) Cesareans: 0 (05/10/2016 15:59:Shahnaz Allen RN) VBACs: 0 (05/10/2016 15:59:Shahnaz Allen RN) Ectopic: 0 (05/10/2016 15:59:Shahnaz Allen RN) Multiple Births: 0 (05/10/2016 15:59:Shahnaz Allen RN) Baby, Number in Womb: 1 (05/16/2016 17:41:Shahnaz Allen RN) CARE Primary Charge Aide: [facility] (05/10/2016 15:59:Shahnaz Allen RN) Charge Aide Other: [facility] (05/10/2016 15:59:Shahnaz Allen RN) Month of 1st Visit: 12/2015 (05/10/2016 15:59:Maryellen Narayan RN) Adequate Care: No (05/10/2016 15:59:Maryellen Narayan RN) Prepregnancy Weight (lb): 144 (05/10/2016 15:59:Shahnaz Allen RN) Prepregnancy Weight (kg): 65.5 (05/10/2016 15:59:QS system process) Height (in): 65 (05/10/2016 16:08:QS system process) ALLERGIES Medication Allergy: No (05/10/2016 15:59:Shahnaz Allen RN) Medication Allergies: No Known Allergies (06/17/2016) (06/17/2016 14:09:QS system process) Latex Allergy: No Latex Allergies (05/10/2016 15:59:Shahnaz Allen RN) Food Allergies: N/A (05/10/2016 15:59:Maryellen Narayan RN) Environmental Allergies: N/A (05/10/2016 15:59:Maryellen Narayan RN) COMMUNICATION Primary Language: Montserratian (05/10/2016 15:59:Shahnaz Allen RN) Medical Tx Preferred Language: Montserratian (05/10/2016 15:59:Shahnaz Allen RN) Communication Barrier(s): None (05/10/2016 15:59:Macrina Dwyer RN) DEMOGRAPHICS Address: [address] [place], [place] [address] [address] (05/10/2016 16:08:QS system process) Zipcode: [address] (05/10/2016 15:57:QS system process) Home (05/10/2016 15:57:QS system process) SSN: [id number] (05/10/2016 15:57:QS system process) Next of Kin Name: GUNNAR ALEGRIA (05/10/2016 15:57:QS system process) Next of Kin (05/10/2016 15:57:QS system process) Next of Kin Relationship: OR (05/10/2016 15:57:QS system process) Date of : 1995 (05/10/2016 15:57:QS system process) Marital Status: Legally (05/10/2016 15:57:QS system process) Sex: Female (05/10/2016 15:57:QS system process) Race: (05/10/2016 15:57:QS system process) Ethnicity: Non- or (05/10/2016 15:57:QS system process) Yazdanism: None (05/10/2016 15:57:QS system process) DRUG AND ALCOHOL USE Alcohol: No (05/10/2016 15:59:Shahnaz Allen RN) Cigarettes: Former Smoker. [id number] (05/10/2016 15:59:Shahnaz Allen RN) Marijuana: No (05/10/2016 15:59:Shahnaz Allen RN) Cocaine: No (05/10/2016 15:59:Shahnaz Allen RN) Other Illicit Drugs: No (05/10/2016 15:59:Macrina Dwyer RN) VACCINE HISTORY Influenza Vaccine: Yes (05/10/2016 15:59:Shahnaz Allen RN) Pneumococcal Vaccine: No (05/10/2016 15:59:Shahnaz Allen RN) Tetanus Vaccine: No (05/10/2016 15:59:Shahnaz Allen RN) Tdap Vaccine: No (05/10/2016 15:59:Shahnaz Allen RN) Hepatitis B Vaccine: Yes (05/10/2016 15:59:Shahnaz Allen RN) Coating Machine Helper: [facility] (05/10/2016 15:59:Shahnaz Allen RN) Feeding Preference: Breast (05/10/2016 15:59:Shahnaz Allen RN) Benefit of Breast Feed Discussed: Yes (05/10/2016 15:59:Shahnaz Allen RN) Circumcision: N/A (05/10/2016 15:59:Shahnaz Allen RN) Classes Attended: No (05/10/2016 15:59:Shahnaz Allen RN) Tubal Ligation: Yes (05/10/2016 15:59:Shahnaz Allen RN) Tubal Authorization Signed: N/A (05/10/2016 15:59:Shahnaz Allen RN) Consent: N/A (05/10/2016 15:59:Shahnaz Allen RN) Consent Signed: N/A (05/10/2016 15:59:Shahnaz Allen RN) Pain Management Plans: Epidural (05/10/2016 15:59:Shahnaz Allen RN) Plans for Labor and Delivery: Plan (05/10/2016 15:59:Shahnaz Allen RN) Support Person: Aunt/Cousin (05/10/2016 15:59:Maryellen Narayan RN) Support Person Relationship: Other (05/10/2016 15:59:Maryellen Narayan RN) Cultural/Spritual Practice: No (05/10/2016 15:59:Shahnaz Allen RN) Spir/Cult Dietary Needs: No (05/10/2016 15:59:Shahnaz Allen RN) LIVING SITUATION/DISCHARGE PLAN Living Arrangements: House (05/10/2016 15:59:Shahnaz Allen RN) Adequate Access to:: Electric; Heat; Refrigeration; Plumbing/Running water; Phone; Transportation (05/10/2016 15:59:Shahnaz Allen RN) WIC Program: No (05/10/2016 15:59:Shahnaz Allen RN) Discharge Precision Honer Person: FOB (05/10/2016 15:59:Shahnaz Allen RN) Person to Help after Discharge: FOB (05/10/2016 15:59:Shahnaz Allen, RN) Currently Using Commun Resources: No (05/10/2016 15:59:Shahnaz Aleln RN) Outside Agency/Radio Electronics Officer: No (05/10/2016 15:59:Shahnaz Allen, RN) Car Seat for Discharge: Yes (05/10/2016 15:59:Shahnaz Allen RN) Adoption Requested: No (05/10/2016 15:59:Shahnaz Allen RN) Pt Contact w/infant Post : N/A (05/10/2016 15:59:Shahnaz Allen RN) LABS Blood Type: A Positive (05/10/2016 15:59:Shahnaz Allen RN) Antibody Screen: negative (05/10/2016 15:59:Shahnaz Allen RN) Rho(G) this : Not Applicable (05/10/2016 15:59:Maryellen Narayan RN) Hemoglobin: 10.2 L (06/17/2016 14:28:QS system process) Hematocrit: 31.2 L (06/17/2016 14:28:QS system process) MCV: 80 (06/17/2016 14:28:QS system process) Group Beta Strep: negative (05/10/2016 15:59:Macrina Dwyer RN) Gonorrhea: Negative (05/10/2016 15:59:Shahnaz Allen RN) Chlamydia: Negative (05/10/2016 15:59:Shahnaz Allen RN) RPR/VDRL: Nonreactive (05/10/2016 15:59:Shahnaz Allen RN) HIV Exposure Test: Negative (05/10/2016 15:59:Shahnaz Allen RN) Hepatitis B: Negative (05/10/2016 15:59:Shahnaz Allen RN) Rubella: Immune (05/10/2016 15:59:Shahnaz Allen RN) Varicella: Non Susceptible (05/10/2016 15:59:Shahnaz Allen RN) OB/PREVIOUS HISTORY Previous Procedures: Ultrasound; NST (05/10/2016 15:59:Shahnaz Allen RN) Current Procedures: Ultrasound; NST (05/10/2016 15:59:Shahnaz Allen RN) History of Previous : No (05/10/2016 15:59:Shahnaz Allen RN) History of Gestational Diabetes: No (05/10/2016 15:59:Shahnaz Allen RN) History of PIH: No (05/10/2016 15:59:Shahnaz Allen RN) History of Incompetent Cervix: No (05/10/2016 15:59:Shahnaz Allen RN) History of Placenta Previa/Abrup: No (05/10/2016 15:59:Shahnaz Allen RN) History of Macrosomia: No (05/10/2016 15:59:Shahnaz Allen RN) History of IUGR: No (05/10/2016 15:59:Shahnaz Allen RN) History of Hemorrhage: No (05/10/2016 15:59:Shahnaz Allen RN) History of Loss/Stillborn: No (05/10/2016 15:59:Shahnaz Allen RN) History of : No (05/10/2016 15:59:Shahnaz Allen RN) History of D (Rh) Sensitization: No (05/10/2016 15:59:Shahnaz Allen RN) History Recurrent Loss/Stillborn: No (05/10/2016 15:59:Shahnaz Allen RN) History Depression/PP Depression: No (05/10/2016 15:59:Shahnaz Allen RN) History of Uterine Anomaly/THEO: No (05/10/2016 15:59:Shahnaz Allen RN) History of Infertility: No (05/10/2016 15:59:Shahnaz Allen RN) History of ART Treatment: No (05/10/2016 15:59:Shahnaz Allen RN) History of THEO: No (05/10/2016 15:59:Shahnaz Allen RN) Comments Obstetrical History: G1: 05/2013 , no complications G2: 04/2015 EAB 6 weeks G3: 06/2015 SAB 6 weeks G4: Current; Late Care at 19 weeks (05/10/2016 15:59:Maryellen Narayan RN) MEDICAL HISTORY Med Hx Diabetes: No (05/10/2016 15:59:Shahnaz Allen RN) Med Hx Hypertension: No (05/10/2016 15:59:Shahnaz Allen RN) Med Hx Heart Disease: No (05/10/2016 15:59:Shahnaz Allen RN) Med Hx Autoimmune Disorder: No (05/10/2016 15:59:Shahnaz Allen RN) Med Hx Kidney Disease/UTI: No (05/10/2016 15:59:Shahnaz Allen RN) Med Hx Neurologic/Epilepsy: No (05/10/2016 15:59:Shahnaz Allen RN) Med Hx Psychiatric Disorders: No (05/10/2016 15:59:Shahnaz Allen RN) Med Hx Hepatitis/Liver Disease: No (05/10/2016 15:59:Shahnaz Allen RN) Med Hx Varicosities/Phlebitis: No (05/10/2016 15:59:Shahnaz Allen RN) Med Hx Thyroid Dysfunction: No (05/10/2016 15:59:Shahnaz Allen RN) Med Hx Trauma/Violence: No (05/10/2016 15:59:Shahnaz Allen RN) Med Hx Blood Transfusion: No (05/10/2016 15:59:Shahnaz Allen RN) Med Hx Pulmonary (Asthma,TB): No (05/10/2016 15:59:Shahnaz Allen RN) Med Hx Breast: No (05/10/2016 15:59:Shahnaz Allen RN) 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 Surgery: No (05/10/2016 15:59:Shahnaz Allen RN) Med Hx Hospitalization/Surgery: Yes (05/10/2016 15:59:Shahnaz Allen RN) Med Hx Anesthetic Complications: No (05/10/2016 15:59:Shahnaz Allen RN) Med Hx Abnormal Pap Smear: No (05/10/2016 15:59:Shahnaz Allen RN) Other Medical Diseases: No (05/10/2016 15:59:Shahnaz Allen RN) Med Hx Significant Family Hx: No (05/10/2016 15:59:Shahnaz Allen RN) Details of Med/Surg Hx: Hospitalization, Surgery: Childbirth, [place] teeth (05/10/2016 15:59:Maryellen Narayan RN) INFECTIOUS HISTORY Inf Hx Gonorrhea: No (05/10/2016 15:59:Shahnaz Allen RN) Inf Hx Chlamydia: Yes (05/10/2016 15:59:Shahnaz Allen RN) Inf Hx Syphilis: No (05/10/2016 15:59:Shahnaz Allen RN) Inf Hx HIV/AIDS: No (05/10/2016 15:59:Shahnaz Allen RN) Inf Hx Human Papilloma Virus: No (05/10/2016 15:59:Shahnaz Allen RN) Inf Hx Pt/Partner Genital Herpes: No (05/10/2016 15:59:Shahnaz Allen RN) Inf Hx Tuberculosis/Exposure: No (05/10/2016 15:59:Shahnaz Allen RN) Inf Hx Hepatitis B,C: No (05/10/2016 15:59:Shahnaz Allen RN) Inf Hx Rash or Viral Illness: No (05/10/2016 15:59:Shahnaz Allen RN) Details of Infectious Hx: Chlamydia 2014 treated (05/10/2016 15:59:Shahnaz Allen RN) GENETIC HISTORY Gen Hx Age >=35 at CHEVY: No (05/10/2016 15:59:Shahnaz Allen RN) Gen Hx Thalassemia: No (05/10/2016 15:59:Shahnaz Allen RN) Gen Hx Congenital Heart Defect: No (05/10/2016 15:59:Shahnaz Allen RN) Gen Hx Neural Tube Defect: No (05/10/2016 15:59:Shahnaz Allen RN) Gen Hx Down's Syndrome: No (05/10/2016 15:59:Shahnaz Allen RN) Gen Hx Ryan-Sachs: No (05/10/2016 15:59:Shahnaz Allen RN) Gen Hx Maryjane: No (05/10/2016 15:59:Shahnaz Allen RN) Gen Hx Familial Dysautonomia: No (05/10/2016 15:59:Shahnaz Allen RN) Gen Hx Sickle Cell Disease/Trait: No (05/10/2016 15:59:Shahnaz Allen RN) Gen Hx Hemophilia/Blood Disorder: No (05/10/2016 15:59:Shahnaz Allen RN) Gen Hx Muscular Dystrophy: No (05/10/2016 15:59:Shahnaz Allen RN) Gen Hx Cystic Fibrosis: No (05/10/2016 15:59:Shahnaz Allen RN) Gen Hx [place] Chorea: No (05/10/2016 15:59:Shahnaz Allen RN) Gen Hx Mental Retardation/Autism: No (05/10/2016 15:59:Shahnaz Allen RN) Gen Hx Tested for Fragile X: No (05/10/2016 15:59:Shahnaz Allen RN) Gen Hx Other Inher/Chromosomal: No (05/10/2016 15:59:Shahnaz Allen RN) Gen Hx Maternal Metabolic DO: No (05/10/2016 15:59:Shahnaz Allen RN) Gen Hx Pt Father or FOB Defect: No (05/10/2016 15:59:Shahnaz Allen RN) Gen Hx Other Genetic History: No (05/10/2016 15:59:Shahnaz Allen RN) Gen Hx Drugs/Meds since LMP: Yes (05/10/2016 15:59:Shahnaz Allen RN) Gen Hx Medications: PNV, antibiotics for UTI, Tylenol (05/10/2016 15:59:Shahnaz Allen RN)
[2016-06-19] MEDS: IBUPROFEN 800 MG TABLET PO SCH ×3 (05:52→21:55)
--- NOTE | 2016-06-19 06:01 | L&D General Admission ---
General Admit Datetime Report Generated by CPN: 06/19/2016 06:00 INFORMATION Patient Age: 21 (05/10/2016 15:57:QS system process) EDC: 06/15/2016 00:00 (05/10/2016 15:59:Shahnaz Allen RN) : 4 (05/10/2016 15:59:Shahnaz Allen RN) Para: 1 (05/16/2016 17:41:hSahnaz Allen RN) Term: 1 (05/10/2016 15:59:Shahnaz Allen RN) : 0 (05/10/2016 15:59:Shahnaz Allen RN) Spontaneous Abortions: 1 (05/10/2016 15:59:Shahnaz Allen RN) Induced Abortions: 1 (05/10/2016 15:59:Shahnaz Allen RN) Livin (05/10/2016 15:59:Shahnaz Allen RN) Cesareans: 0 (05/10/2016 15:59:Shahnaz Allen RN) VBACs: 0 (05/10/2016 15:59:Shahnaz Allen RN) Ectopic: 0 (05/10/2016 15:59:Shahnaz Allen RN) Multiple Births: 0 (05/10/2016 15:59:Shahnaz Allen RN) Baby, Number in Womb: 1 (05/16/2016 17:41:Shahnaz Allen RN) CARE Primary Information Services Consultant: [facility] (05/10/2016 15:59:Shahnaz Allen RN) Information Services Consultant Other: [facility] (05/10/2016 15:59:Shahnaz Allen RN) Month of 1st Visit: 12/2015 (05/10/2016 15:59:Maryellen Narayan RN) Adequate Care: No (05/10/2016 15:59:Maryellen Narayan RN) Prepregnancy Weight (lb): 144 (05/10/2016 15:59:Shahnaz Allen RN) Prepregnancy Weight (kg): 65.5 (05/10/2016 15:59:QS system process) Height (in): 65 (05/10/2016 16:08:QS system process) ALLERGIES Medication Allergy: No (05/10/2016 15:59:Shahnaz Allen RN) Medication Allergies: No Known Allergies (06/17/2016) (06/17/2016 14:09:QS system process) Latex Allergy: No Latex Allergies (05/10/2016 15:59:Shahnaz Allen RN) Food Allergies: N/A (05/10/2016 15:59:Maryellen Narayan RN) Environmental Allergies: N/A (05/10/2016 15:59:Maryellen Narayan RN) COMMUNICATION Primary Language: Congolese (05/10/2016 15:59:Shahnaz Allen RN) Medical Tx Preferred Language: Congolese (05/10/2016 15:59:Shahnaz Allen RN) Communication Barrier(s): None (05/10/2016 15:59:Macrina Dwyer RN) DEMOGRAPHICS Address: [address] [place], [place] [address] [address] (05/10/2016 16:08:QS system process) Zipcode: [address] (05/10/2016 15:57:QS system process) Home (05/10/2016 15:57:QS system process) SSN: [id number] (05/10/2016 15:57:QS system process) Next of Kin Name: GUNNAR ALEGRIA (05/10/2016 15:57:QS system process) Next of Kin (05/10/2016 15:57:QS system process) Next of Kin Relationship: OR (05/10/2016 15:57:QS system process) Date of : 1995 (05/10/2016 15:57:QS system process) Marital Status: Legally (05/10/2016 15:57:QS system process) Sex: Female (05/10/2016 15:57:QS system process) Race: (05/10/2016 15:57:QS system process) Ethnicity: Non- or (05/10/2016 15:57:QS system process) Confucianism: None (05/10/2016 15:57:QS system process) DRUG AND ALCOHOL USE Alcohol: No (05/10/2016 15:59:Shahnaz Allen RN) Cigarettes: Former Smoker. [id number] (05/10/2016 15:59:Shahnaz Allen RN) Marijuana: No (05/10/2016 15:59:Shahnaz Allen RN) Cocaine: No (05/10/2016 15:59:Shahnaz Allen RN) Other Illicit Drugs: No (05/10/2016 15:59:Macrina Dwyer RN) VACCINE HISTORY Influenza Vaccine: Yes (05/10/2016 15:59:Shahnaz Allen RN) Pneumococcal Vaccine: No (05/10/2016 15:59:Shahnaz Allen RN) Tetanus Vaccine: No (05/10/2016 15:59:Shahnaz Allen RN) Tdap Vaccine: No (05/10/2016 15:59:Shahnaz Allen RN) Hepatitis B Vaccine: Yes (05/10/2016 15:59:Shahnaz Allen RN) [employer] Officer: [facility] (05/10/2016 15:59:Shahnaz Allen RN) Feeding Preference: Breast (05/10/2016 15:59:Shahnaz Allen RN) Benefit of Breast Feed Discussed: Yes (05/10/2016 15:59:Shahnaz Allen RN) Circumcision: N/A (05/10/2016 15:59:Shahnaz Allen RN) Classes Attended: No (05/10/2016 15:59:Shahnaz Allen RN) Tubal Ligation: Yes (05/10/2016 15:59:Shahnaz Allen RN) Tubal Authorization Signed: N/A (05/10/2016 15:59:Shahnaz Allen RN) Consent: N/A (05/10/2016 15:59:Shahnaz Allen RN) Consent Signed: N/A (05/10/2016 15:59:Shahnaz Allen RN) Pain Management Plans: Epidural (05/10/2016 15:59:Shahnaz Allen RN) Plans for Labor and Delivery: Plan (05/10/2016 15:59:Shahnaz Allen RN) Support Person: Aunt/Cousin (05/10/2016 15:59:Maryellen Narayan RN) Support Person Relationship: Other (05/10/2016 15:59:Maryellen Narayan RN) Cultural/Spritual Practice: No (05/10/2016 15:59:Shahnaz Allen RN) Spir/Cult Dietary Needs: No (05/10/2016 15:59:Shahnaz Allen RN) LIVING SITUATION/DISCHARGE PLAN Living Arrangements: House (05/10/2016 15:59:Shahnaz Allen RN) Adequate Access to:: Electric; Heat; Refrigeration; Plumbing/Running water; Phone; Transportation (05/10/2016 15:59:Shahnaz Allen RN) WIC Program: No (05/10/2016 15:59:Shahnaz Allen RN) Discharge Eviscerator Person: FOB (05/10/2016 15:59:Shahnaz Allen RN) Person to Help after Discharge: FOB (05/10/2016 15:59:Shahnaz Allen, RN) Currently Using Commun Resources: No (05/10/2016 15:59:Shahnaz Allen RN) Outside Agency/Engine Setter: No (05/10/2016 15:59:Shahnaz Allen, RN) Car Seat for Discharge: Yes (05/10/2016 15:59:Shahnaz Allen RN) Adoption Requested: No (05/10/2016 15:59:Shahnaz Allen RN) Pt Contact w/infant Post : N/A (05/10/2016 15:59:Shahnaz Allen RN) LABS Blood Type: A Positive (05/10/2016 15:59:Shahnaz Allen RN) Antibody Screen: negative (05/10/2016 15:59:Shahnaz Allen RN) Rho(G) this : Not Applicable (05/10/2016 15:59:Maryellen Narayan RN) Hemoglobin: 10.2 L (06/17/2016 14:28:QS system process) Hematocrit: 31.2 L (06/17/2016 14:28:QS system process) MCV: 80 (06/17/2016 14:28:QS system process) Group Beta Strep: negative (05/10/2016 15:59:Macrina Dwyer RN) Gonorrhea: Negative (05/10/2016 15:59:Shahnaz Allen RN) Chlamydia: Negative (05/10/2016 15:59:Shahnaz Allen RN) RPR/VDRL: Nonreactive (05/10/2016 15:59:Shahnaz Allen RN) HIV Exposure Test: Negative (05/10/2016 15:59:Shahnaz Allen RN) Hepatitis B: Negative (05/10/2016 15:59:Shahnaz Allen RN) Rubella: Immune (05/10/2016 15:59:Shahnaz Allen RN) Varicella: Non Susceptible (05/10/2016 15:59:Shahnaz Allen RN) OB/PREVIOUS HISTORY Previous Procedures: Ultrasound; NST (05/10/2016 15:59:Shahnaz Allen RN) Current Procedures: Ultrasound; NST (05/10/2016 15:59:Shahnaz Allen RN) History of Previous : No (05/10/2016 15:59:Shahnaz Allen RN) History of Gestational Diabetes: No (05/10/2016 15:59:Shahnaz Allen RN) History of PIH: No (05/10/2016 15:59:Shahnaz Allen RN) History of Incompetent Cervix: No (05/10/2016 15:59:Shahnaz Allen RN) History of Placenta Previa/Abrup: No (05/10/2016 15:59:Shahnaz Allen RN) History of Macrosomia: No (05/10/2016 15:59:Shahnaz Allen RN) History of IUGR: No (05/10/2016 15:59:Shahnaz Allen RN) History of Hemorrhage: No (05/10/2016 15:59:Shahnaz Allen RN) History of Loss/Stillborn: No (05/10/2016 15:59:Shahnaz Allen RN) History of : No (05/10/2016 15:59:Shahnaz Allen RN) History of D (Rh) Sensitization: No (05/10/2016 15:59:Shahnaz Allen RN) History Recurrent Loss/Stillborn: No (05/10/2016 15:59:Shahnaz Allen RN) History Depression/PP Depression: No (05/10/2016 15:59:Shahnaz Allen RN) History of Uterine Anomaly/THEO: No (05/10/2016 15:59:Shahnaz Allen RN) History of Infertility: No (05/10/2016 15:59:Shahnaz Allen RN) History of ART Treatment: No (05/10/2016 15:59:Shahnaz Allen RN) History of THEO: No (05/10/2016 15:59:Shahnaz Allen RN) Comments Obstetrical History: G1: 05/2013 , no complications G2: 04/2015 EAB 6 weeks G3: 06/2015 SAB 6 weeks G4: Current; Late Care at 19 weeks (05/10/2016 15:59:Maryellen Narayan RN) MEDICAL HISTORY Med Hx Diabetes: No (05/10/2016 15:59:Shahnaz Allen RN) Med Hx Hypertension: No (05/10/2016 15:59:Shahnaz Allen RN) Med Hx Heart Disease: No (05/10/2016 15:59:Shahnaz Allen RN) Med Hx Autoimmune Disorder: No (05/10/2016 15:59:Shahnaz Allen RN) Med Hx Kidney Disease/UTI: No (05/10/2016 15:59:Shahnaz Allen RN) Med Hx Neurologic/Epilepsy: No (05/10/2016 15:59:Shahnaz Allen RN) Med Hx Psychiatric Disorders: No (05/10/2016 15:59:Shahnaz Allen RN) Med Hx Hepatitis/Liver Disease: No (05/10/2016 15:59:Shahnaz Allen RN) Med Hx Varicosities/Phlebitis: No (05/10/2016 15:59:Shahnaz Allen RN) Med Hx Thyroid Dysfunction: No (05/10/2016 15:59:Shahnaz Allen RN) Med Hx Trauma/Violence: No (05/10/2016 15:59:Shahnaz Allen RN) Med Hx Blood Transfusion: No (05/10/2016 15:59:Shahnaz Allen RN) Med Hx Pulmonary (Asthma,TB): No (05/10/2016 15:59:Shahnaz Allen RN) Med Hx Breast: No (05/10/2016 15:59:Shahnaz Allen RN) 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 (05/10/2016 15:59:Shahnaz Allen RN) Med Hx Hospitalization/Surgery: Yes (05/10/2016 15:59:Shahnaz Allen RN) Med Hx Anesthetic Complications: No (05/10/2016 15:59:Shahnaz Allen RN) Med Hx Abnormal Pap Smear: No (05/10/2016 15:59:Shahnaz Allen RN) Other Medical Diseases: No (05/10/2016 15:59:Shahnaz Allen RN) Med Hx Significant Family Hx: No (05/10/2016 15:59:Shahnaz Allen RN) Details of Med/Surg Hx: Hospitalization, Surgery: Childbirth, [place] teeth (05/10/2016 15:59:Maryellen Narayan RN) INFECTIOUS HISTORY Inf Hx Gonorrhea: No (05/10/2016 15:59:Shahnaz Allen RN) Inf Hx Chlamydia: Yes (05/10/2016 15:59:Shahnaz Allen RN) Inf Hx Syphilis: No (05/10/2016 15:59:Shahnaz Allen RN) Inf Hx HIV/AIDS: No (05/10/2016 15:59:Shahnaz Allen RN) Inf Hx Human Papilloma Virus: No (05/10/2016 15:59:Shahnaz Allen RN) Inf Hx Pt/Partner Genital Herpes: No (05/10/2016 15:59:Shahnaz Allen RN) Inf Hx Tuberculosis/Exposure: No (05/10/2016 15:59:Shahnaz Allen RN) Inf Hx Hepatitis B,C: No (05/10/2016 15:59:Shahnaz Allen RN) Inf Hx Rash or Viral Illness: No (05/10/2016 15:59:Shahnaz Allen RN) Details of Infectious Hx: Chlamydia 2014 treated (05/10/2016 15:59:Shahnaz Allen RN) GENETIC HISTORY Gen Hx Age >=35 at CHEVY: No (05/10/2016 15:59:Shahnaz Allen RN) Gen Hx Thalassemia: No (05/10/2016 15:59:Shahnaz Allen RN) Gen Hx Congenital Heart Defect: No (05/10/2016 15:59:Shahnaz Allen RN) Gen Hx Neural Tube Defect: No (05/10/2016 15:59:Shahnaz Allen RN) Gen Hx Down's Syndrome: No (05/10/2016 15:59:Shahnaz Allen RN) Gen Hx Ryan-Sachs: No (05/10/2016 15:59:Shahnaz Allen RN) Gen Hx Maryjane: No (05/10/2016 15:59:Shahnaz Allen RN) Gen Hx Familial Dysautonomia: No (05/10/2016 15:59:Shahnaz Allen RN) Gen Hx Sickle Cell Disease/Trait: No (05/10/2016 15:59:Shahnaz Allen RN) Gen Hx Hemophilia/Blood Disorder: No (05/10/2016 15:59:Shahnaz Allen RN) Gen Hx Muscular Dystrophy: No (05/10/2016 15:59:Shahanz Allen RN) Gen Hx Cystic Fibrosis: No (05/10/2016 15:59:Shahnaz Allen RN) Gen Hx [place] Chorea: No (05/10/2016 15:59:Shahnaz Allen RN) Gen Hx Mental Retardation/Autism: No (05/10/2016 15:59:Shahnaz Allen RN) Gen Hx Tested for Fragile X: No (05/10/2016 15:59:Shahnaz Allen RN) Gen Hx Other Inher/Chromosomal: No (05/10/2016 15:59:Shahnaz Allen RN) Gen Hx Maternal Metabolic DO: No (05/10/2016 15:59:Shahnaz Allen RN) Gen Hx Pt Father or FOB Defect: No (05/10/2016 15:59:Shahnaz Allen RN) Gen Hx Other Genetic History: No (05/10/2016 15:59:Shahnaz Allen RN) Gen Hx Drugs/Meds since LMP: Yes (05/10/2016 15:59:Shahnaz Allen RN) Gen Hx Medications: PNV, antibiotics for UTI, Tylenol (05/10/2016 15:59:Shahnaz Allen RN)
--- NOTE | 2016-06-19 06:01 | L&D Current Admission ---
Current Admit Datetime Report Generated by CPN: 06/19/2016 06:00 ADMISSION INFORMATION Current Admit Date/Time: 06/17/2016 14:13 (06/17/2016 14:11:Shahnaz Allen RN) Reason for Admission: Rupture of Membranes (06/17/2016 14:11:Shahnaz Allen RN) Chief Complaint: Suspected Rupture of Membranes (06/17/2016 14:11:Maryellen Narayan RN) Medications During : Vitamin (06/17/2016 14:11:Shahnaz Allen RN) EGA per Dates: 40.2 (06/17/2016 14:11:QS system process) Method of Arrival: Wheelchair (06/17/2016 14:11:Shahnaz Allen RN) Admitted From: Home (06/17/2016 14:11:Shahnaz Allen RN) Reason for Induction: Not Applicable (06/17/2016 14:11:Shahnaz Allen RN) Records Available: Yes (06/17/2016 14:11:Shahnaz Allen RN) General Admission Information: Reviewed (06/17/2016 14:11:Shahnaz Allen RN) General Admission Reviewed By: Robin Narayan RN (06/17/2016 14:11:Maryellen Narayan RN) BELONGINGS/ADVANCED DIRECTIVES Other Belongings: See belongings consent (06/17/2016 14:11:Maryellen Narayan RN) Disposition of Belongings: Kept with Patient (06/17/2016 14:11:Maryellen Narayan RN) Advance Direct for Healthcare: No, and Wants No Information (06/17/2016 14:11:Maryellen Narayan RN) 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 (06/17/2016 14:11:Maryellen Narayan RN) Living Will: No (06/17/2016 14:11:Maryellen Narayan RN) Organ Donor: Yes (06/17/2016 14:11:Maryellen Narayan RN) Pt Rights Information Given: Yes (06/17/2016 14:11:Maryellen Narayan RN) Pt Understands Pt Rights: Yes (06/17/2016 14:11:Maryellen Narayan RN) LEARNING ASSESSMENT Knowledge Level: Understands L_D Process; Understands Care Activities; Had Pre-Hospital Education; Understands Diagnosis (06/17/2016 14:11:Maryellen Narayan RN) Barriers to Learning: None (06/17/2016 14:11:Maryellen Narayan RN) Learning Readiness: Motivated (06/17/2016 14:11:Maryellen Narayan RN) Learns Best By: 1 to 1 Instruction (06/17/2016 14:11:Maryellen Narayan RN) Learning Needs: Labor and Delivery Process; Pain Management; Symptoms to Report; Treatment Plan; Medication; Diagnosis; Nutrition; Equipment; Infant Care; Community Resources (06/17/2016 14:11:Maryellen Narayan RN) DOMESTIC VIOLANCE SCREENING Dom Viol Threatened/Hurt: No (06/17/2016 14:11:Maryellen Narayan RN) Hx of Abuse/Neglect past 2yrs: No (06/17/2016 14:11:Maryellen Narayan RN) Feel Unsafe Going Home: No (06/17/2016 14:11:Maryellen Narayan RN) Addt'l Observ Indicating Abuse: No (06/17/2016 14:11:Maryellen Narayan RN) Reason Unable to Complete Screen: N/A, Screen Completed (06/17/2016 14:11:Maryellen Narayan RN) Considered Personal Harm/Suicide: No (06/17/2016 14:11:Maryellen Narayan RN) NUTRITIONAL/FUNCTIONAL SCREENING Problem with Appetite >5 Days: No (06/17/2016 14:11:Maryellen Narayan RN) Chew/Swallow Difficulties: No (06/17/2016 14:11:Maryellen Narayan RN) Inappropriate Wt Gain/Loss: No (06/17/2016 14:11:Maryellen Narayan RN) Presence Skin Breakdown/Ulcer: No (06/17/2016 14:11:Maryellen Narayan RN) Special Diet: No (06/17/2016 14:11:Maryellen Narayan RN) Pt Requests Manufacturing Planner Visit: No (06/17/2016 14:11:Maryellen Narayan RN) Hx of Any of the Following?: N/A (06/17/2016 14:11:Maryellen Narayan RN) New Diagnosis of: N/A (06/17/2016 14:11:Maryellen Narayan RN) Requires Assist w/Ambulation: No (06/17/2016 14:11:Maryellen Narayan RN) Uses Assist Device to Ambulate: No (06/17/2016 14:11:Maryellen Narayan RN) Pt Requires Help w/ADL's: No (06/17/2016 14:11:Maryellen Narayan RN)
--- NOTE | 2016-06-19 06:16 | L&D Care Plan ---
LD CARE PLANS Datetime Report Generated by CPN: 06/19/2016 06:15 Datetime: 06/17/2016 14:10 State: Risk For (Shahnaz Allen RN) Related To: Labor and Delivery Process; Treatment and Procedures; Post (Shahnaz Allen RN) Goal(s): Patients Pain will be Assessed and Managed; Patient will Verbalize Adequate Relief of Pain or the Ability to [place] with Current Pain (Shahnaz Allen RN) Interventions: Assess Pain Severity on Scale of 0 (None) to 5 (Severe); Assess Type, Location and Intensity of Pain Each Time Client Reports Discomfort and Notify Provider if Unusal Pain Develops; Encourage Proper Breathing and Relaxation Techniques; Offer Alternatives Such as Repositioning, Calm Environment, Massages, Diversional Activities, Ice Pack, Splinting, and Ambulation; Administer Analgesics as Ordered; Assist with Epidural Placement as Appropriate; Evaluate Therapeutic Effectiveness of Medication and Treatments (Shahnaz Allen RN) Outcome: Patient will Report Absence or Relief of Pain Consistent with Established Pain Goal (Shahnaz Allen RN) Status: Ongoing (Shahnaz Allen RN) Outcome: Patient will have a Decrease in Signs and Symptoms of Discomfort (Shahnaz Allen RN) Status: Ongoing (Shahnaz Allen RN) Outcome: Pain will be Controlled During Procedures (Shahnaz Allen RN) Status: Ongoing (Shahnaz Allen RN) State: Risk For (Shahnaz Allen RN) Related To: Labor and Delivery Process; Medical Interventions; Significant Life Event (Shahnaz Allen RN) Goal(s): Patient will have Decreased Anxiety and be able to Function at Acceptable Levels (Shahnaz Allen RN) Interventions: Assess Verbal and Nonverbal Behavioral Indicators of Anxiety; Assist Patient to Identify and Verbalize Symptoms of Anxiety; Identify and Demonstrate Techniques to Control Anxiety; Assist Patient with Coping Mechanisms to Manage Anxiety; Provide Theraputic Touch for the Patient; Explain to Patient, Using a Calm Reassuring Approach and Nonmedical Terms, All Activities, Procedures, and Concerns; Instruct Patient and Family about Post Discharge Care, Limitations, Symptoms to Report and Resources Available (Shahnaz Allen RN) Outcome: Patient will Identify, Verbalize and Demonstrate Techniques to Control Anxiety (Shahnaz Allen RN) Status: Ongoing (Shahnaz Allen RN) Outcome: Patient's Posture, Facial Expressions, Gestures and Activity Level will Reflect Decreased Anxiety (Shahnaz Allen RN) Status: Ongoing (Shahnaz Allen RN) Outcome: Patient will Verbalize a Sense of Control and/or Acceptance of the Situation (Shahnaz Allen RN) Status: Ongoing (Shahnaz Allen RN) Outcome: Patient will Identify and Utilize Support Person (Shahnaz Allen RN) Status: Ongoing (Shahnaz Allen RN) State: Risk For (Shahnaz Allen RN) Related To: Labor and Delivery Process; Treatment and Procedures (Shahnaz Allen RN) Goal(s): Patient will Accurately Verbalize Understanding of Plan of Care and Treatment; Patient and Family will Accurately Verbalize Understanding of the Disease Process (Shahnaz Allen RN) Interventions: Assess Motivation and Willingness of Patient/Family to Learn; Assess Preferred Learning Mode: One to One Instruction, Reading, Videos, Group Discussion or Demonstration; Assess Barriers to Learning: Pain, Emotional State, Language Barrier, Cognitive Impairment, Visual or Hearing Deficits; Assess Patient and Family Knowledge of Disease Process, Medications and Treatment; Discuss Therapy and/or Treatment Options, Describe Rationale Behind Management, Therapy and Treatment Recommendations; Instruct Patient and Family on Signs and Symptoms to Report; Instruct Patient and Family on Medication Effects and Side Effects; Provide Appropriate and Timely Education Using Multiple Techniques; Provide Patient and Family with Support Group Information and Resources; Give Clear and Thorough Explanations and Demonstrations (Shahnaz Allen RN) Outcome: Patient and Family will Verbalize Understanding of Condition, Treatment and Signs and Symptoms to Report (Shahnaz Allen RN) Status: Ongoing (Shahnaz Allen RN) Outcome: Patient will Identify Perceived Learning Needs and Express Motivation to Learn (Shahnaz Allen RN) Status: Ongoing (Shahnaz Allen, RN) Outcome: Patient will Verbalize Understanding of Desired Content, and/or Performs Desired Skill Prior to Discharge (Shahnaz Allen RN) Status: Ongoing (Shahnaz Allen RN) State: Risk For (Shahnaz Allen RN) Related To: Prolonged Labor or Induction; Premature/Prolonged Rupture of Membranes; Invasive Procedures (Shahnaz Allen RN) Goal(s): The Patient will be Free of Infection, Vital Signs Stable and Lab Work within Normal Parameters (Shahnaz Allen RN) Interventions: Instruct and Reinforce Proper Handwashing, Hygiene, and Care Techniques to Patient and Family; Monitor Vital Signs; Monitor Patient for the Following Signs of Infection: Fever, Abdominal Tenderness, Unusual Discharge; Monitor Aminiotic Fluid, Urine and Lochia for Color and Odor; Observe Wounds, Incisions and Invasive Line Sites for Redness, Drainage and Edema; Assess IV Sites per Hospital Policy; Monitor Lab and Test Results and Notify Provider of Abnormal Findings; Assess Nutritional Status and Promote Good Nutrition (Shahnaz Allen RN) Outcome: Patient will Remain Free of Infection (Shahnaz Allen RN) Status: Ongoing (Shahnaz Allen RN) Outcome: Infection will be Recognized Early to Allow for Prompt Treatment (Shahnaz Allen RN) Status: Ongoing (Shahnaz Allen RN) Outcome: Patient will have Vital Signs Within Expected Range (Shahnaz Allen RN) Status: Ongoing (Shahnaz Allen RN) State: Not Applicable (Shahnaz Allen, RN) State: Risk For (Shahnaz Allen RN) Related To: Labor and Delivery Process (Shahnaz Allen, KEELY) Goal(s): Patient will Remain Free from Injury (Shahnaz Allen RN) Interventions: Monitoring as per Hospital Protocol; Assess Neurological Status; Perform Risk Assessment of Patients with Induction and ; Perform Fall Risk Assessment and Prevention per Hospital Protocol; Perform DVT Risk Assessment and Prophylaxis per Hospital Protocol; Ensure that Oxygen, Suction, and Resuscitation Medications and Equipment are Readily Available; Confirm Patient ID Prior to Procedure(s) and Medication Administration per Hospital Policy (Shahnaz Allen RN) Outcome: Successful Fall Risk Prevention (Shahnaz Allen RN) Status: Ongoing (Shahnaz Allen RN) Outcome: Patient will Deliver Infant without Adverse [place] (Shahnaz Allen RN) Status: Ongoing (Shahnaz Allen, RN) Outcome: Patient's Neurological Status will Remain Stable (Shahnaz Allen RN) Status: Ongoing (Shahnaz Allen, RN) State: Risk For (Shahnaz Allen RN) Related To: Vaginal Delivery; Invasive Procedures (Shahnaz Allen RN) Goal(s): Patient will Maintain Optimal Skin Integrity, Free of Breakdown, Injury or Infection (Shahnaz Allen, RN) Interventions: Complete Screening for Pressure Ulcer Risk and Initiate Protocol per Hospital Policy; Monitor Site of Skin Impairment for Color Changes, Redness, Swelling, Warmth, Pain or Other Signs of Infection; Encourage and Assist with Position Changes; Monitor Patient's Mobility Status; Provide Adequate Nutrition and Fluids; Teach Patient Appropriate Hygienic Care; Teach Patient/Family Skin Care Management (Shahnaz Allen RN) Outcome: Patient will not have Evidence of Injury Such as Skin Breakdown, Scrapes, Cuts, or Bruising (Shahnaz Allen RN) Status: Ongoing (Shahnaz Allen RN) Outcome: Patient will Report Any Altered Sensation or Pain at Site of Skin Impairment (Shahnaz Allen, RN) Status: Ongoing (Shahnaz Allen, RN) Outcome: Patients Incisions and Wounds will be without Signs or Symptoms of Infection (Shahnaz Allen, RN) Status: Ongoing (Shahnaz Allen, RN) Outcome: Patient will Demonstrate Understanding of Plan to Heal Skin and Prevent Reinjury and Verbalize Risk Factors (Shahnaz Allen RN) Status: Ongoing (Shahnaz Allen RN) State: Not Applicable (Shahnaz Allen RN) State: Not Applicable (Shahnaz Allen RN) State: Not Applicable (Shahnaz Allen, RN) State: Not Applicable (Shahnaz Allen, RN)
[2016-06-19 07:52] LABS: HEMATOCRIT 30.5 % (36.0-47.0); HEMOGLOBIN 9.9 g/dL (12.0-15.5); HGB HCT DIFFERENCE -0.8; MEAN CORPUSCULAR HEMOGLOBIN 26.1 pg (27.0-33.4); MEAN CORPUSCULAR HGB CONC 32.4 g/dL (32.0-36.0); MEAN CORPUSCULAR VOLUME 80 fl (80-97); RED BLOOD COUNT 3.79 10^6/uL (3.72-5.28); RED CELL DISTRIBUTION WIDTH 14.8 % (11.5-14.0); WHITE BLOOD COUNT 10.4 10^3/uL (4.0-10.5)
--- NOTE | 2016-06-19 09:06 | PDOC PROGRESS REPORT ---
Subjective-OB Subjective: Post Delivery Day: 21 year old. Denies any needs at this time. Would like to go home today but not if baby is required to stay secondary fever last pm. Physical Exam (OB) Vital Signs: Temp Pulse Resp BP Pulse Ox 97.6 F 78 16 115/67 100 06/19/16 08:25 06/19/16 08:25 06/19/16 08:25 06/19/16 08:25 06/19/16 08:25 Intake & Output 06/18/16 06/19/16 06/20/16 06:59 06:59 06:59 Output Total 1 Balance -1 Weight 82.8 kg - Lochia Lochia Amount: Small 10-25 ml Lochia Color: Rubra/Red - Abdomen Description: Soft, Round Hernia Present: No Bowel Sounds: Normoactive Flatus Presence: Present Stool: Yes Fundal Description: Firm, Midline Fundal Height: u/u - u/2 Objective-Diagnostic Laboratory: 06/19/16 07:38 06/19/16 07:38 WBC 10.4 RBC 3.79 Hgb 9.9 L Hct 30.5 L MCV 80 MCH 26.1 L MCHC 32.4 RDW 14.8 H Plt Count 276
[2016-06-19] MEDS: FERROUS SULFATE 325 MG TABLET PO SCH ×2 (10:45→17:29)
[2016-06-19] MEDS: PRENATAL VITAMIN W-O CA NO5/FE FUMARATE/FA CAPSULE PO SCH (10:45)
[2016-06-19] MEDS: DOCUSATE SODIUM 100 MG CAPSULE PO SCH ×2 (10:45→17:29)
[2016-06-19] MEDS: SENNOSIDES/DOCUSATE 8.6-50 MG 1 EACH TABLET PO SCH (10:45)
[2016-06-20] MEDS: IBUPROFEN 800 MG TABLET PO SCH ×2 (05:33→13:56)
[2016-06-20 08:17] VITALS: BP 113/75
[2016-06-20] MEDS: SENNOSIDES/DOCUSATE 8.6-50 MG 1 EACH TABLET PO SCH (10:28)
[2016-06-20] MEDS: DOCUSATE SODIUM 100 MG CAPSULE PO SCH (10:28)
[2016-06-20] MEDS: PRENATAL VITAMIN W-O CA NO5/FE FUMARATE/FA CAPSULE PO SCH (10:28)
[2016-06-20] MEDS: FERROUS SULFATE 325 MG TABLET PO SCH (10:28)
--- NOTE | 2016-06-20 14:05 | PDOC DISCHARGE SUMMARY ---
Final Diagnosis Discharge Date: 06/20/16 - Final Diagnosis (1) Meconium stained amniotic fluid, delivered, current hospitalization Is this a current diagnosis for this admission?: Yes (2) Insufficient antepartum care Is this a current diagnosis for this admission?: Yes (3) Late onset care Is this a current diagnosis for this admission?: Yes (4) Is this a current diagnosis for this admission?: Yes (5) Delivery normal Is this a current diagnosis for this admission?: Yes Discharge Data - Discharge Medication Home Medications: Pnv with Ca,No.72/Iron/FA [Pnv Plus Multivit Tab] 1 each PO DAILY 05/16 Docusate Sodium [Colace 100 mg Capsule] 100 mg PO BID #60 capsule 06/20/16 Ferrous Sulfate [Feosol 325 mg Tablet] 325 mg PO BID #60 tablet 06/20/16 Ibuprofen [Motrin 800 mg Tablet] 800 mg PO Q8 #90 tablet 06/20/16 Reason(s) for Admission: PROM Procedures: Ultrasound Intrapartum Procedure(s): Spontaneous Vaginal Delivery - Diagnosis Test Laboratory: Temp Pulse Resp BP Pulse Ox 98.2 F 84 16 113/75 99 06/20/16 13:39 06/20/16 13:39 06/20/16 13:39 06/20/16 13:39 06/20/16 13:39 06/17/16 06/17/16 06/19/16 14:04 14:28 07:38 RBC 3.89 3.79 Hgb 10.2 L 9.9 L Hct 31.2 L 30.5 L Urine Opiates Screen NEGATIVE - Discharge information/Instructions Discharge Activity: Activity As Tolerated, Balance Activity w/Rest, No Lifting Over 10 Pounds, No Lifting/Push/Pulling, Pelvic Rest, Slowly Increase Activity, No tub bath Discharge Diet: Regular Disposition: HOME, SELF-CARE Follow [facility] with: [facility] in: 4, Weeks
== END 2016-06-20 14:59 | disposition home or self-care (01) | DRG 775 ==
LOC: LC 13:55 → LR 14:21 → 2S 06-18 03:09
PROVIDERS: ADMIT Specialist; ATTEND Specialist
PROC: 10E0XZZ Delivery of Products of Conception, External Approach (ICD-10-PCS; principal; 2016-06-18)
DX: O80 Encounter for full-term uncomplicated delivery (principal); Z3A.40 40 weeks gestation of pregnancy; Z37.0 Single live birth
CPT/HCPCS: 36415; 80307; 81005; 85025; 85027; 86592; 86850; 86900; 86901; 88307; 90715; 94760; J2300; J2590; J3490